=== PATIENT | male | born 1935 | race Caucasian/White ===

== ENCOUNTER 2016-10-18 14:15 | Emergency (ER) | payer MEDICARE, OTHER ==
[2016-10-18] MEDS ORDERED: HYDROcod/ACETAM 5/325 MG TABLET PO STA (17:12)
[2016-10-18] MEDS ORDERED: HYDROcod/ACETAM 5/325 MG TABLET ONE (17:27)
== END 2016-10-18 18:04 | disposition home or self-care (01) ==
DX: S39.012A Strain of muscle, fascia and tendon of lower back, initial encounter (principal); S20.212A Contusion of left front wall of thorax, initial encounter; W01.0XXA Fall on same level from slipping, tripping and stumbling without subsequent striking against object, initial encounter; Y92.019 Unspecified place in single-family (private) house as the place of occurrence of the external cause; I10 Essential (primary) hypertension; E78.00 Pure hypercholesterolemia, unspecified; I25.10 Atherosclerotic heart disease of native coronary artery without angina pectoris; G30.9 Alzheimer's disease, unspecified; F02.80 Dementia in other diseases classified elsewhere, unspecified severity, without behavioral disturbance, psychotic disturbance, mood disturbance, and anxiety; K21.9 Gastro-esophageal reflux disease without esophagitis; M19.90 Unspecified osteoarthritis, unspecified site
CPT/HCPCS: 71101; 72100; 99283; A9270

== ENCOUNTER 2017-05-11 19:23 | Emergency (ER) | payer MEDICARE, OTHER ==
[2017-05-11] MEDS ORDERED: SULFAMETH/TRIMETH DS 800/160 MG TABLET PO STA (20:09)
[2017-05-11] MEDS ORDERED: BUFFERED LIDOCAINE 10 ML SYRINGE SUBQ STA (20:09)
[2017-05-11] MEDS ORDERED: cephALEXin 250 MG CAPSULE PO STA (20:09)
--- NOTE | 2017-05-11 20:11 | ED Physician Documentation ---
PD HPI SKIN - Stated complaint Stated Complaint: LEG CYST - Chief complaint Chief Complaint: Wound - History obtained from History obtained from: Patient, Family - History of Present Illness Timing - onset: Other (82-year-old with Alzheimer's dementia is brought in by family, he has a cyst on his right leg that started as a pimple about 2 weeks ago and has become progressively larger. They drained it with a needle a few days ago and did get some drainage, but it closed back up. There is no associated fever or chills.) Review of Systems Ten Systems: 10 systems reviewed and negative Constitutional: denies: Fever, Chills, Myalgias, Fatigue Cardiac: reports: Reviewed and negative Respiratory: reports: Reviewed and negative PD PAST MEDICAL HISTORY - Past Medical History Cardiovascular: Hypertension, High cholesterol, Coronary artery disease Respiratory: None Neuro: Alzhiemer's GI: GERD : Other Psych: None Musculoskeletal: Osteoarthritis, Other Derm: None - Past Surgical History Past Surgical History: Yes General: Colonoscopy Ortho: Knee replacement Cardiovascular: Coronary stent HEENT: Tonsil/Adenoidectomy - Present Medications Home Medications: Ambulatory Orders Medication Instructions Recorded Confirmed Losartan [Cozaar] 20 mg PO DAILY 12/08/12 05/11/17 Simvastatin [Zocor] 40 mg PO DAILY 12/08/12 05/11/17 Cephalexin [Keflex] 500 mg PO QID #40 capsule 05/11/17 Sulfamethoxazole/Trimethoprim 1 each PO BID 10 Days tablet 05/11/17 [Sulfamethoxazole-Tmp Ds Tablet] - Allergies Allergies/Adverse Reactions: Allergies Allergy/AdvReac Type Severity Reaction Status Date / Time No Known Drug Allergies Allergy Verified 05/11/17 19:39 - Social History Does the pt smoke?: No Smoking Status: Never smoker Does the pt drink ETOH?: Yes Does the pt have substance abuse?: No - Immunizations Immunizations: TDAP >10years/unknown - POLST Patient has POLST: No PD ED PE NORMAL - Vitals Vital signs reviewed: Yes - General General: No acute distress, Well developed/nourished, Other (He uses the family for most of the history, he is pleasant and mildly demented.) - HEENT HEENT: PERRL, EOMI - Neck Neck: Supple, no meningeal sign, No bony TTP - Cardiac Cardiac: RRR, No murmur - Respiratory Respiratory: No respiratory distress, Clear bilaterally - Abdomen Abdomen: Soft, Non tender - Derm Derm: Normal color, Warm and dry - Extremities Extremities: Other (On the top of the right thigh medially there is a 3 x 2 cm pointed abscess without much surrounding cellulitis.) - Neuro Neuro: No motor deficit, No sensory deficit Eye Opening: Spontaneous Motor: Obeys Commands Verbal: Oriented GCS Score: 15 - Psych Psych: Normal mood, Normal affect Results - Vitals Vitals: Vital Signs - 24 hr 05/11/17 05/11/17 05/11/17 19:35 21:49 22:18 Temperature 36.2 C L 36.8 C Heart Rate 69 76 75 Respiratory 18 12 18 Rate Blood Pressure 126/83 H 138/75 H 134/81 H O2 Saturation 98 99 99 Oxygen O2 Source Room air - Labs Labs: Microbiology 05/11/17 20:43 Wound Culture - Preliminary Abscess Laboratory Tests 05/11/17 05/11/17 05/11/17 20:56 20:56 20:56 WBC 10.8 RBC 4.41 L Hgb 13.8 L Hct 40.3 L MCV 91.3 MCH 31.3 H MCHC 34.3 RDW 12.7 Plt Count 171 MPV 8.0 Neut # 8.0 H Lymph # 1.6 [facility] # 1.0 Eos # 0.1 Baso # 0.1 Absolute Nucleated RBC 0.01 Nucleated RBC % 0.1 Sodium 136 Potassium 3.9 Chloride 101 Carbon Dioxide 25 Anion Gap 10.0 BUN 31 H Creatinine 1.1 Estimated GFR (MDRD) 64 L Glucose 111 H Lactic Acid 0.6 Calcium 9.1 Total Bilirubin 1.2 H AST 27 ALT 29 Alkaline Phosphatase 47 Total Protein 7.2 Albumin 3.8 Globulin 3.4 Albumin/Globulin Ratio 1.1 Lipase 59 H - Rads (name of study) CT pelvis Radiology: EMP read contemporaneously (Right peroneal and medial thighs Skin thickening without drainable fluid collection) Procedures - Abscess I&D (location) R groin Preparation: Betadine, Lidocaine 1% Incision: Incised with scalpel, Purulent drainage, Loculations broken, Packed ( with 1/4 inch packing), Culture obtained Other: Pt tolerated well, Dressing applied PD MEDICAL DECISION MAKING - ED course ED course: He seem to have an uncomplicated groin abscess, that said when he want to incise and drain it and the loculated at the hemostats easily went up to the suggesting a very extensive abscess cavity and there became a concern for either a necrotizing infection although this is not clinically significant as he has minimal pain and does not appear toxic, versus a fistulous connection to the GI tract. At that point he had already received oral antibiotics but I made a decision to place an IV and obtain advanced imaging prior to surgical consultation. After the CT I did discuss the case by phone with Dr. Dumont, the on-call surgeon who felt that he did not need admission and she was not too worried about the extent that the hemostats penetrated. His CT was negative and he remained nontoxic appearing with basically unremarkable labs. Family was comfortable with discharge and they were counseled at length about follow-up wound care. Departure - Departure Disposition: 01 Home, Self Care Clinical Impression: Abscess Condition: Good Record reviewed to determine appropriate education?: Yes Instructions: ED Abscess IandD Follow-Up: SUZY DUMONT MD [Provider Admit Priv/Credential] - Within 1 week Prescriptions: Cephalexin [Keflex] 500 mg PO QID #40 capsule Sulfamethoxazole/Trimethoprim [Sulfamethoxazole-Tmp Ds Tablet] 1 each PO BID 10 Days tablet Comments: Follow-up with your doctor or the career services officer in 2 days for wound check and packing removal. Return if worse. Follow-up with the surgeon in 1 week as discussed.
[2017-05-11] MEDS ORDERED: cephALEXin 250 MG CAPSULE PO ONE (20:20)
[2017-05-11] MEDS ORDERED: SULFAMETH/TRIMETH DS 800/160 MG TABLET PO ONE (20:21)
[2017-05-11] MEDS ORDERED: BUFFERED LIDOCAINE 10 ML SYRINGE ONE (20:22)
[2017-05-11 21:05] LABS: BASOPHILS # (AUTO) 0.1 10^3/uL (0.0-0.1); BASOPHILS % (AUTO) 0.6 %; EOSINOPHILS # (AUTO) 0.1 10^3/uL (0.0-0.7); EOSINOPHILS % (AUTO) 0.9 %; HCT - HEMATOCRIT 40.3 % (42.0-52.0); HGB - HEMOGLOBIN 13.8 g/dL (14.0-18.0); LYMPHOCYTES # (AUTO) 1.6 10^3/uL (1.5-3.5); LYMPHOCYTES % (AUTO) 14.7 %; MEAN CORPUSCULAR HEMOGLOBIN 31.3 pg (27.0-31.0); MEAN CORPUSCULAR HGB CONC 34.3 g/dL (32.0-36.0); MEAN CORPUSCULAR VOLUME 91.3 fL (80.0-94.0); MONOCYTES % (AUTO) 9.3 %; NEUTROPHILS % (AUTO) 74.5 %; NUCLEATED RED BLOOD CELLS AUTO 0.1 /100WBC; RED BLOOD COUNT 4.41 10^6/uL (4.70-6.10); RED CELL DISTRIBUTION WIDTH 12.7 % (12.0-15.0); UNCORRECTED WHITE BLOOD COUNT 10.8 x10^3/uL; WHITE BLOOD COUNT 10.8 x10^3/uL (4.8-10.8)
[2017-05-11 21:19] LABS: ALBUMIN/GLOBULIN RATIO 1.1 (1.0-2.2); BILIRUBIN,TOTAL 1.2 mg/dL (0.2-1.0); CALCIUM 9.1 mg/dL (8.5-10.3); CREATININE 1.1 mg/dL (0.6-1.2); POTASSIUM 3.9 mmol/L (3.5-5.0); TOTAL PROTEIN 7.2 g/dL (6.7-8.2)
[2017-05-11] MEDS ORDERED: IOPAMIDOL-300 100 ML VIAL ONE (21:35)
[2017-05-11] MEDS ORDERED: IOPAMIDOL-300 100 ML VIAL IVP ONE (21:44)
--- NOTE | 2017-05-11 22:11 | CT Preliminary Report ---
Exam: CT PELVIS W/ IMPRESSION: 1. There is right perineal and medial thigh skin thickening and subcutaneous fat stranding. No eviden ce of drainable collection. 2. There is sigmoid colon diverticulosis. [facility] SITE ID: [id number]
--- NOTE | 2017-05-11 22:14 | CT Report ---
EXAM: CT PELVIS EXAM DATE: 05/11/2017 09:48 PM. CLINICAL HISTORY: Right groin abscess. COMPARISONS: None. TECHNIQUE: Routine helical CT imaging was performed through the pelvis. IV contrast: Isovue 300 100mL . Enteric contrast: No. Reconstructions: Coronal and sagittal. In accordance with CT protocol optimization, one or more of the following dose reduction techniques w ere utilized for this exam: automated exposure control, adjustment of mA and/or KV based on patient s ize, or use of iterative reconstructive technique. FINDINGS: Visualized Abdominal Organs: Normal. Peritoneal Cavity/Bowel: No dilated or thick-walled bowel is seen. There is sigmoid colon diverticulo sis without evidence of diverticulitis. No enlarged pelvic lymph nodes. No evidence of appendicitis. Pelvic Organs: The urinary bladder is unremarkable. There is a fat-containing left inguinal hernia. T here are low pelvic surgical clips. Vasculature: No aneurysms or other significant abnormality. Bones: No significant abnormality. Other: There is right perineal and medial thigh skin thickening and subcutaneous fat stranding. No ev idence of drainable collection. IMPRESSION: 1. There is right perineal and medial thigh skin thickening and subcutaneous fat stranding. No eviden ce of drainable collection. 2. There is sigmoid colon diverticulosis. [facility] Referring Provider Line: [phone] SITE ID: [id number]
[2017-05-11 22:55] VITALS: BP 129/83
== END 2017-05-11 23:03 | disposition home or self-care (01) ==
LOC: ED 19:23
DX: L02.415 Cutaneous abscess of right lower limb (principal); I10 Essential (primary) hypertension; I25.10 Atherosclerotic heart disease of native coronary artery without angina pectoris; E78.00 Pure hypercholesterolemia, unspecified; G30.9 Alzheimer's disease, unspecified; F02.80 Dementia in other diseases classified elsewhere, unspecified severity, without behavioral disturbance, psychotic disturbance, mood disturbance, and anxiety; Z95.5 Presence of coronary angioplasty implant and graft; Z96.659 Presence of unspecified artificial knee joint
CPT/HCPCS: 10060; 36415; 72193; 80053; 83605; 83690; 85025; 87040; 87070; 87205; 99283; 99284; A9270; Q9967

== ENCOUNTER 2017-05-13 12:44 | Outpatient (CLI) | payer MEDICARE, OTHER | END 2017-05-13 12:45 | disposition critical access hospital (66) | LOC: EMS 12:44 | PROVIDERS: ATTEND Surgery | DX: R10.9 Unspecified abdominal pain (principal); R19.7 Diarrhea, unspecified | CPT/HCPCS: A0425; A0427 ==

== ENCOUNTER 2017-05-13 12:59 | Inpatient (IN) | payer MEDICARE, OTHER ==
[2017-05-13 14:35] LABS: BASOPHILS # (AUTO) 0.1 10^3/uL (0.0-0.1); BASOPHILS % (AUTO) 0.8 %; EOSINOPHILS # (AUTO) 0.1 10^3/uL (0.0-0.7); EOSINOPHILS % (AUTO) 0.4 %; HCT - HEMATOCRIT 39.9 % (42.0-52.0); HGB - HEMOGLOBIN 13.8 g/dL (14.0-18.0); LYMPHOCYTES # (AUTO) 0.9 10^3/uL (1.5-3.5); LYMPHOCYTES % (AUTO) 6.8 %; MEAN CORPUSCULAR HEMOGLOBIN 31.6 pg (27.0-31.0); MEAN CORPUSCULAR HGB CONC 34.6 g/dL (32.0-36.0); MEAN CORPUSCULAR VOLUME 91.2 fL (80.0-94.0); MEAN PLATELET VOLUME 8.5 fL (7.4-11.4); MONOCYTES # (AUTO) 0.8 10^3/uL (0.0-1.0); MONOCYTES % (AUTO) 6.4 %; NEUTROPHILS # (AUTO) 11.3 10^3/uL (1.5-6.6); NEUTROPHILS % (AUTO) 85.6 %; NUCLEATED RED BLOOD CELLS AUTO 0.1 /100WBC; RED BLOOD COUNT 4.37 10^6/uL (4.70-6.10); RED CELL DISTRIBUTION WIDTH 12.8 % (12.0-15.0); UNCORRECTED WHITE BLOOD COUNT 13.2 x10^3/uL; WHITE BLOOD COUNT 13.2 x10^3/uL (4.8-10.8)
[2017-05-13 14:51] LABS: ALBUMIN/GLOBULIN RATIO 1.1 (1.0-2.2); BILIRUBIN,TOTAL 0.9 mg/dL (0.2-1.0); CALCIUM 8.9 mg/dL (8.5-10.3); CREATININE 1.5 mg/dL (0.6-1.2); POTASSIUM 3.6 mmol/L (3.5-5.0); TOTAL PROTEIN 7.2 g/dL (6.7-8.2)
--- NOTE | 2017-05-13 15:32 | ED Physician Documentation ---
History of Present Illness - Stated complaint Stated Complaint: ABD PAIN, NAUSEA - Chief complaint Chief Complaint: Abd Pain - Additonal information Additional information: hx from pt 82 male recently seen for deep abscess to R inner thigh - had CT imaging blood work and phone consultation with surgeon during that ER visit dc on antibiotics keflex and bactrim followed up with derm and repacked and added bactroban back to ER today with severe diarrhea and shaking chills and weakness Review of Systems Constitutional: reports: Chills. denies: Fever Cardiac: denies: Chest pain / pressure GI: reports: Abdominal Pain, Nausea, Vomiting, Diarrhea : reports: Incontinent. denies: Dysuria Skin: reports: Lesions Endocrine: denies: Easy bruising / bleeding Immunocompromised: denies: Immunocompromised PD PAST MEDICAL HISTORY - Past Medical History Cardiovascular: Hypertension, High cholesterol, Coronary artery disease Respiratory: None Neuro: Alzhiemer's GI: GERD : Other Psych: None Musculoskeletal: Osteoarthritis, Other Derm: None - Past Surgical History Past Surgical History: Yes General: Colonoscopy Ortho: Knee replacement Cardiovascular: Coronary stent HEENT: Tonsil/Adenoidectomy - Present Medications Home Medications: Ambulatory Orders Medication Instructions Recorded Confirmed Losartan [Cozaar] 20 mg PO DAILY 12/08/12 05/11/17 Simvastatin [Zocor] 40 mg PO DAILY 12/08/12 05/11/17 Cephalexin [Keflex] 500 mg PO QID #40 capsule 05/11/17 Sulfamethoxazole/Trimethoprim 1 each PO BID 10 Days tablet 05/11/17 [Sulfamethoxazole-Tmp Ds Tablet] - Allergies Allergies/Adverse Reactions: Allergies Allergy/AdvReac Type Severity Reaction Status Date / Time No Known Drug Allergies Allergy Verified 05/13/17 13:22 - Social History Does the pt smoke?: No Smoking Status: Never smoker Does the pt drink ETOH?: Yes Does the pt have substance abuse?: No - Immunizations Immunizations: TDAP >10years/unknown - POLST Patient has POLST: No PD ED PE NORMAL - Vitals Vital signs reviewed: Yes - General General: Other (alert confused) - Neck Neck: Supple, no meningeal sign - Respiratory Respiratory: No respiratory distress, Clear bilaterally - Abdomen Abdomen: Soft, Non tender - Derm Derm: Other (high inner posterior R thigh abscess cavity with no dc and surrounding mild eythema and some bruising (looks better than before per family) ) Results - Vitals Vitals: Vital Signs - 24 hr 05/13/17 05/13/17 05/13/17 13:00 14:43 16:13 Temperature 36.2 C L Heart Rate 73 77 87 Respiratory 16 20 Rate Blood Pressure 133/72 H 133/81 H 78/56 L O2 Saturation 92 98 05/13/17 16:27 Temperature Heart Rate 86 Respiratory 24 Rate Blood Pressure 94/76 O2 Saturation 100 Oxygen O2 Source Room air - Labs Labs: Microbiology 05/13/17 14:14 Clostridium difficile (PCR) - Final Stool 05/13/17 14:14 Campylobacter Antigen Assay - Final Stool Laboratory Tests 05/13/17 05/13/17 05/13/17 14:28 14:28 15:42 WBC 13.2 H RBC 4.37 L Hgb 13.8 L Hct 39.9 L MCV 91.2 MCH 31.6 H MCHC 34.6 RDW 12.8 Plt Count 160 MPV 8.5 Neut # 11.3 H Lymph # 0.9 L [place] # 0.8 Eos # 0.1 Baso # 0.1 Absolute Nucleated RBC 0.01 Nucleated RBC % 0.1 Sodium 135 Potassium 3.6 Chloride 99 L Carbon Dioxide 22 Anion Gap 14.0 H BUN 33 H Creatinine 1.5 H Estimated GFR (MDRD) 45 L Glucose 167 H Lactic Acid 2.4 H Calcium 8.9 Total Bilirubin 0.9 AST 39 ALT 35 Alkaline Phosphatase 62 Total Protein 7.2 Albumin 3.8 Globulin 3.4 Albumin/Globulin Ratio 1.1 Lipase 27 PD MEDICAL DECISION MAKING - ED course ED course: repacked wound sent stool for c diff pt developed rea rigors so added lactate blood cx urine and CXR then progressed to hypotension lactate elevated not sure if septic or volume depleted from unstoppable diarrhea either way needs admit per EMR blood cx from last visit neg to date and abscess grew skin anna will discuss IV ab with admitting doc - we agreed on angel dewitt Departure - Departure Disposition: 66 [facility] DC/Xfer Clinical Impression: SIRS (systemic inflammatory response syndrome), Abscess Hypotension Qualifiers: Hypotension type: unspecified hypotension type Qualified Code(s): I95.9 - Hypotension, unspecified Diarrhea Qualifiers: Diarrhea type: unspecified type Qualified Code(s): R19.7 - Diarrhea, unspecified Discharge Date/Time: 05/13/17 18:08
--- NOTE | 2017-05-13 16:08 | XRAY Preliminary Report ---
Exam: XR CHEST 1 VIEW IMPRESSION: Normal single view chest. [facility] SITE ID: [id number]
--- NOTE | 2017-05-13 16:14 | XRAY Report ---
EXAM: CHEST RADIOGRAPHY EXAM DATE: 05/13/2017 03:56 PM. CLINICAL HISTORY: Dementia. COMPARISON: 10/18/2016. TECHNIQUE: 1 view. FINDINGS: Lungs/Pleura: No focal opacities evident. No pleural effusion. No pneumothorax. Mediastinum: Within exam limitations, the cardiomediastinal contour is normal. Other: None. IMPRESSION: Normal single view chest. [facility] Referring Provider Line: [phone] SITE ID: [id number]
[2017-05-13] MEDS ORDERED: SODIUM CHLORIDE 0.9% 1,000 ML IV ONE (16:28)
[2017-05-13] MEDS ORDERED: PIPERACILLIN/TAZOBACTAM 3.375 GM in SODIUM CHLORIDE 0.9% MINIBAG 100 ML IV STA (16:58)
[2017-05-13] MEDS ORDERED: ONDANSETRON ODT 4 MG TABLET TL PRN (16:58)
[2017-05-13] MEDS ORDERED: VANCOMYCIN INJ 1 GM in SODIUM CHLORIDE 0.9% 250 ML IV STA (16:58)
[2017-05-13] MEDS ORDERED: HYDROmorphone 0.5 MG/0.5 ML SYRINGE IVP PRN (16:58)
[2017-05-13] MEDS ORDERED: HYDROcod/ACETAM 5/325 MG TABLET PO PRN (16:58)
[2017-05-13] MEDS ORDERED: LIDOCAINE 2% URO-JET 5 ML SYRINGE UR STA (16:59)
[2017-05-13] MEDS ORDERED: LIDOCAINE 2% URO-JET 5 ML SYRINGE UR ONE (17:00)
[2017-05-13 17:39] LABS: BILIRUBIN,URINE NEGATIVE (NEGATIVE)
[2017-05-13 17:40] LABS: UA CHARGE (STRIP ONLY) YES; UR CULTURE IF IND NOT INDICATED
[2017-05-13] MEDS: SODIUM CHLORIDE 0.9% 1,000 ML IV SCH (19:05)
[2017-05-13] MEDS: VANCOMYCIN 1.5 GM/NS 500 ML 1.5 GM/500 ML BAG IV SCH (19:21)
[2017-05-13] MEDS: CHOLESTYRAMINE 4 GM PACKET PO SCH (19:30)
[2017-05-13] MEDS: ONDANSETRON 4 MG/2 ML VIAL IVP PRN (19:39)
[2017-05-13] MEDS: SODIUM CHLORIDE FLUSH 0.9% 10 ML SYRINGE IVP SCH (21:04)
[2017-05-13] MEDS: PIPERACILLIN/TAZOBACTAM 3.375 GM in SODIUM CHLORIDE 0.9% MINIBAG 100 ML IV SCH (21:25)
[2017-05-13] MEDS: DIPHENOX/ATROPINE 2.5/0.025 MG TABLET PO PRN (22:20)
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
[2017-05-14] MEDS ORDERED: MIN OIL/DIMETHICON/COCONUT OIL 92 GM TUBE TOP ONE (04:14)
[2017-05-14] MEDS: PIPERACILLIN/TAZOBACTAM 3.375 GM in SODIUM CHLORIDE 0.9% MINIBAG 100 ML IV SCH ×3 (05:02→20:33)
[2017-05-14] MEDS: DIPHENOX/ATROPINE 2.5/0.025 MG TABLET PO PRN ×4 (05:03→20:34)
[2017-05-14] MEDS: SODIUM CHLORIDE FLUSH 0.9% 10 ML SYRINGE IVP SCH ×3 (05:04→20:34)
[2017-05-14] MEDS: SODIUM CHLORIDE 0.9% 1,000 ML IV SCH (05:04)
[2017-05-14 05:25] LABS: CALCIUM 8.4 mg/dL (8.5-10.3); CREATININE 1.1 mg/dL (0.6-1.2); POTASSIUM 3.7 mmol/L (3.5-5.0)
[2017-05-14 05:30] LABS: BASOPHILS % (AUTO) 0.3 %; EOSINOPHILS % (AUTO) 0.1 %; HCT - HEMATOCRIT 39.5 % (42.0-52.0); HGB - HEMOGLOBIN 13.5 g/dL (14.0-18.0); LYMPHOCYTES # (AUTO) 1.2 10^3/uL (1.5-3.5); LYMPHOCYTES % (AUTO) 8.3 %; MEAN CORPUSCULAR HEMOGLOBIN 31.1 pg (27.0-31.0); MEAN CORPUSCULAR HGB CONC 34.2 g/dL (32.0-36.0); MEAN CORPUSCULAR VOLUME 91.1 fL (80.0-94.0); MEAN PLATELET VOLUME 8.6 fL (7.4-11.4); MONOCYTES # (AUTO) 1.1 10^3/uL (0.0-1.0); MONOCYTES % (AUTO) 7.6 %; NEUTROPHILS # (AUTO) 12.1 10^3/uL (1.5-6.6); NEUTROPHILS % (AUTO) 83.7 %; RED BLOOD COUNT 4.34 10^6/uL (4.70-6.10); RED CELL DISTRIBUTION WIDTH 12.9 % (12.0-15.0); UNCORRECTED WHITE BLOOD COUNT 14.5 x10^3/uL; WHITE BLOOD COUNT 14.5 x10^3/uL (4.8-10.8)
--- NOTE | 2017-05-14 07:46 | PROVIDER PROGRESS NOTE ---
Subjective - Prog Note Date Prog Note Date: 05/14/17 Prog Note Time: 07:41 - Subjective Pt reports feeling: Improved Subjective: Overnight his blood pressures remained stable. He is still in ICU. Did not need to use pressor agents. He is having diarrhea that is thick, pudding-like, and maroon red. There is no abdominal pain. He already had Campylobacter and C. difficile in the emergency room and those were negative. Current Medications - Current Medications Current Medications: Active Medications Acetaminophen (Tylenol) 650 mg PO Q4HR PRN PRN Reason: Pain 1 to 4 Acetaminophen/Hydrocodone Bitart (Mccoy 5/325) 1 tab PO Q4HR PRN PRN Reason: Pain 5 to 7 Cholestyramine/Sucrose (Questran) 4 gm PO DAILY [facility] Last Admin: 05/13/17 19:30 Dose: 4 gm Diphenoxylate HCl/Atropine (Lomotil) 1 tab PO QID PRN PRN Reason: Diarrhea Last Admin: 05/14/17 05:03 Dose: 1 tab Enoxaparin Sodium (Lovenox) 40 mg SUBQ DAILY [facility] Hydromorphone HCl (Dilaudid Inj Syringe) 0.5 mg IVP Q2H PRN PRN Reason: Pain 8 to 10 Sodium Chloride (Normal Saline 0.9%) 1,000 mls @ 100 mls/hr IV .Q10H [facility] Last Admin: 05/14/17 05:04 Dose: 100 mls/hr Vancomycin/Sodium Chloride (Vanco/Sod Chloride 0.9%) 1.5 gm in 500 mls @ 250 mls/hr IV Q24H [facility] Last Infusion: 05/13/17 21:25 Dose: Infused Piperacillin Sod/Tazobactam (Sod 3.375 gm/ Sodium Chloride) 100 mls @ 25 mls/ hr IV Q8H [facility] Last Admin: 05/14/17 05:02 Dose: 100 mls/hr Ondansetron HCl (Zofran Inj) 4 mg IVP Q6HR PRN PRN Reason: Nausea / Vomiting Last Admin: 05/13/17 19:39 Dose: 4 mg Ondansetron HCl (Zofran Odt) 4 mg TL Q6HR PRN PRN Reason: Nausea / Vomiting Sodium Chloride (Normal Saline Flush 0.9%) 10 ml IVP Q8HR [facility] Last Admin: 05/14/17 05:04 Dose: Not Given Sodium Chloride (Normal Saline Flush 0.9%) 10 ml IVP PRN PRN PRN Reason: NEEDED PER PROVIDER ORDERS Losartan [Cozaar] 20 mg PO DAILY 12/08/12 Simvastatin [Zocor] 40 mg PO DAILY 12/08/12 Objective - Vital Signs/Intake & Output Reviewed Vital Signs: Yes Vital Signs: Vital Signs x48h Temp Pulse Resp BP Pulse Ox 05/14/17 06:00 78 12 149/78 H 97 05/14/17 05:00 36.0 C L 88 16 158/88 H 97 05/14/17 04:00 92 12 156/89 H 96 05/14/17 03:00 93 15 156/92 H 94 05/14/17 02:00 93 10 L 160/83 H 96 05/14/17 01:00 95 15 157/84 H 97 05/14/17 00:00 36.4 C L 92 16 156/91 H 95 Intake & Output: Intake & Output 05/11/17 05/12/17 05/13/17 05/14/17 23:59 23:59 23:59 23:59 Intake Total 9436.260 1256.333 Output Total 1115 260 Balance 665.000 898.333 - Lab Results Fish Bones: 05/14/17 05:08 05/14/17 05:08 Other Labs: Lab Results x24hrs 05/14/17 05/14/17 05/14/17 Range/Units 05:08 05:08 05:08 WBC 14.5 H (4.8-10.8) x10^3/uL RBC 4.34 L (4.70-6.10) 10^6/uL Hgb 13.5 L (14.0-18.0) g/dL Hct 39.5 L (42.0-52.0) % MCV 91.1 (80.0-94.0) fL MCH 31.1 H (27.0-31.0) pg MCHC 34.2 (32.0-36.0) g/dL RDW 12.9 (12.0-15.0) % Plt Count 170 (130-450) 10^3/uL MPV 8.6 (7.4-11.4) fL Neut # 12.1 H (1.5-6.6) 10^3/uL Lymph # 1.2 L (1.5-3.5) 10^3/uL [place] # 1.1 H (0.0-1.0) 10^3/uL Eos # 0.0 (0.0-0.7) 10^3/uL Baso # 0.0 (0.0-0.1) 10^3/uL Absolute Nucleated RBC 0.01 x10^3/uL Nucleated RBC % 0.0 /100WBC Sodium 137 (135-145) mmol/L Potassium 3.7 (3.5-5.0) mmol/L Chloride 105 (101-111) mmol/L Carbon Dioxide 20 L (21-32) mmol/L Anion Gap 12.0 (6-13) BUN 19 (6-20) mg/dL Creatinine 1.1 (0.6-1.2) mg/dL Estimated GFR (MDRD) 64 L (>89) Glucose 145 H (70-100) mg/dL Lactic Acid 0.8 (0.5-2.2) mmol/L Calcium 8.4 L (8.5-10.3) mg/dL Urine Color Urine Clarity (CLEAR) Urine pH (5.0-7.5) PH Ur Specific Eldridge (1.002-1.030) Urine Protein (NEGATIVE) mg/dL Urine Glucose (UA) (NEGATIVE) mg/dL Urine Ketones (NEGATIVE) mg/dL Urine Occult Blood (NEGATIVE) Urine Nitrite (NEGATIVE) Urine Bilirubin (NEGATIVE) Urine Urobilinogen (NORMAL) E.U./dL Ur Leukocyte Esterase (NEGATIVE) Ur Microscopic Review Urine Culture Comments 05/13/17 Range/Units 17:17 WBC (4.8-10.8) x10^3/uL RBC (4.70-6.10) 10^6/uL Hgb (14.0-18.0) g/dL Hct (42.0-52.0) % MCV (80.0-94.0) fL MCH (27.0-31.0) pg MCHC (32.0-36.0) g/dL RDW (12.0-15.0) % Plt Count (130-450) 10^3/uL MPV (7.4-11.4) fL Neut # (1.5-6.6) 10^3/uL Lymph # (1.5-3.5) 10^3/uL [place] # (0.0-1.0) 10^3/uL Eos # (0.0-0.7) 10^3/uL Baso # (0.0-0.1) 10^3/uL Absolute Nucleated RBC x10^3/uL Nucleated RBC % /100WBC Sodium (135-145) mmol/L Potassium (3.5-5.0) mmol/L Chloride (101-111) mmol/L Carbon Dioxide (21-32) mmol/L Anion Gap (6-13) BUN (6-20) mg/dL Creatinine (0.6-1.2) mg/dL Estimated GFR (MDRD) (>89) Glucose (70-100) mg/dL Lactic Acid (0.5-2.2) mmol/L Calcium (8.5-10.3) mg/dL Urine Color YELLOW Urine Clarity CLEAR (CLEAR) Urine pH 6.0 (5.0-7.5) PH Ur Specific [place] 1.020 (1.002-1.030) Urine Protein NEGATIVE (NEGATIVE) mg/dL Urine Glucose (UA) NEGATIVE (NEGATIVE) mg/dL Urine Ketones TRACE (NEGATIVE) mg/dL Urine Occult Blood NEGATIVE (NEGATIVE) Urine Nitrite NEGATIVE (NEGATIVE) Urine Bilirubin NEGATIVE (NEGATIVE) Urine Urobilinogen 0.2 (NORMAL) (NORMAL) E.U./dL Ur Leukocyte Esterase NEGATIVE (NEGATIVE) Ur Microscopic Review NOT INDICATED Urine Culture Comments NOT INDICATED Assessment/Plan - Problem List (1) Sepsis Impression: came in with diarhhea, slumping to the floor, AMS. In ER hypotensive, tachycardic, elevated WBC and elevated lactic acid. Abcess is only source seen for cause of infection so far. Repeat lactic acid is now normal. Hypotension resolved and now normotensive. WBC is still high. So sepsis has resolved. Plan: Transfer to Med Surg Status. Qualifiers: Sepsis type: sepsis due to unspecified organism Qualified Code(s): A41.9 - Sepsis, unspecified organism (2) Abscess Impression: right medial thigh, next to scrotum. He has had filemon intertrigo since this summer and is followed by Dermatology with antifungal cream use. This may have the the cause of his skin breakdown. presented as a small "pea" that came to a head a week ago, sun at home, then grew larger and more purulent and seen in ER 05/11. I&D with cultures showing only nml skin anna and blood cultures neg. Treated with Keflex and Bactrim, Seen by Derm 05/12 to repack wound, and came in with diarhhea, slumping to the floor, AMS. In ER hypotensive, tachycardic, elevated WBC and elevated lactic acid. Abcess is only source seen for cause of infection so far. Plan: Zosyn and Vancomycin Day #2 daily dressing changes. (3) Diarrhea Impression: sudden in onset day of admission after 3 oral doses of abx. C Dif neg. Campy neg. Culture is pending. Cause of dehyration and hypotension as well. Plan: check stool for FOBT await cultures. If continues, consider CT abd and pelvis to look for bowel pathology and to look at groin abcess progress Qualifiers: Diarrhea type: unspecified type Qualified Code(s): R19.7 - Diarrhea, unspecified (4) ERIBERTO (acute kidney injury) Impression: Resolved. From dehydration and diarrhea. Has responded to IV hydration. UA is negative for UTI. Has a hx of prostate cancer with prostatectomy and residual frequency, urgency and incontinence. Plan: IV lock after 2 full liters of NS Will continue daily BUN, Creat check since he is on Vancomycin. (5) Hyperglycemia Impression: no history of DM Plan: Check A1c (6) Weakness generalized Impression: Due to severe infection. He needs help sitting up in bed, and going to the bathroom. He is very cooperative with aids. But the is alarmed. She cannot take him home this way. As such I will ask for physical therapy to evaluate and treat and see if he is a candidate for physical therapy in a halfway facility.
[2017-05-14] MEDS: CHOLESTYRAMINE 4 GM PACKET PO SCH (08:40)
[2017-05-14] MEDS: ENOXAPARIN 40 MG/0.4 ML SYRINGE SUBQ SCH (08:41)
[2017-05-14] MEDS: ACETAMINOPHEN 325 MG TABLET PO PRN (13:25)
[2017-05-14] MEDS: VANCOMYCIN 1.5 GM/NS 500 ML 1.5 GM/500 ML BAG IV SCH (18:15)
[2017-05-14] MEDS: SODIUM CHLORIDE FLUSH 0.9% 10 ML SYRINGE IVP PRN (18:15)
[2017-05-15] MEDS: DIPHENOX/ATROPINE 2.5/0.025 MG TABLET PO PRN (04:46)
[2017-05-15] MEDS: PIPERACILLIN/TAZOBACTAM 3.375 GM in SODIUM CHLORIDE 0.9% MINIBAG 100 ML IV SCH (04:46)
[2017-05-15] MEDS: ACETAMINOPHEN 325 MG TABLET PO PRN (04:46)
[2017-05-15] MEDS: SODIUM CHLORIDE FLUSH 0.9% 10 ML SYRINGE IVP SCH ×3 (04:47→21:55)
[2017-05-15 05:10] LABS: BASOPHILS # (AUTO) 0.1 10^3/uL (0.0-0.1); BASOPHILS % (AUTO) 0.5 %; EOSINOPHILS # (AUTO) 0.2 10^3/uL (0.0-0.7); EOSINOPHILS % (AUTO) 1.2 %; HCT - HEMATOCRIT 36.7 % (42.0-52.0); HGB - HEMOGLOBIN 12.5 g/dL (14.0-18.0); LYMPHOCYTES # (AUTO) 1.8 10^3/uL (1.5-3.5); LYMPHOCYTES % (AUTO) 13.5 %; MEAN CORPUSCULAR HEMOGLOBIN 31.2 pg (27.0-31.0); MEAN CORPUSCULAR HGB CONC 34.1 g/dL (32.0-36.0); MEAN CORPUSCULAR VOLUME 91.7 fL (80.0-94.0); MEAN PLATELET VOLUME 8.5 fL (7.4-11.4); MONOCYTES % (AUTO) 7.6 %; NEUTROPHILS # (AUTO) 10.5 10^3/uL (1.5-6.6); NEUTROPHILS % (AUTO) 77.2 %; RED BLOOD COUNT 4.01 10^6/uL (4.70-6.10); RED CELL DISTRIBUTION WIDTH 12.9 % (12.0-15.0); UNCORRECTED WHITE BLOOD COUNT 13.6 x10^3/uL; WHITE BLOOD COUNT 13.6 x10^3/uL (4.8-10.8)
[2017-05-15 05:15] LABS: CREATININE 0.9 mg/dL (0.6-1.2); POTASSIUM 3.6 mmol/L (3.5-5.0)
[2017-05-15 06:19] LABS: HEMOGLOBIN A1C 0.47 g/dL
--- NOTE | 2017-05-15 08:19 | PROVIDER PROGRESS NOTE ---
Subjective - Prog Note Date Prog Note Date: 05/15/17 Prog Note Time: 09:28 - Subjective Subjective: He remains a very pleasant, very cooperative but very forgetful elderly gentleman. As always, he is a [place] speaker. Always very complementary of the nurses and myself. But cannot remember he met me 5 minutes ago. Still having diarrhea but much less frequency than yesterday. I know that he lacks the foresight inability to describe discomfort. But he denies chest pain, abdominal pain. He is eating well. Eats 5200% of his meals Current Medications - Current Medications Current Medications: Active Medications Acetaminophen (Tylenol) 650 mg PO Q4HR PRN PRN Reason: Pain 1 to 4 Last Admin: 05/15/17 04:46 Dose: 650 mg Acetaminophen/Hydrocodone Bitart ([place] 5/325) 1 tab PO Q4HR PRN PRN Reason: Pain 5 to 7 Cholestyramine/Sucrose (Questran) 4 gm PO DAILY [facility] Last Admin: 05/15/17 08:36 Dose: 4 gm Diphenoxylate HCl/Atropine (Lomotil) 1 tab PO QID PRN PRN Reason: Diarrhea Last Admin: 05/15/17 04:46 Dose: 1 tab Enoxaparin Sodium (Lovenox) 40 mg SUBQ DAILY [facility] Last Admin: 05/15/17 08:37 Dose: 40 mg Hydromorphone HCl (Dilaudid Inj Syringe) 0.5 mg IVP Q2H PRN PRN Reason: Pain 8 to 10 Vancomycin/Sodium Chloride (Vanco/Sod Chloride 0.9%) 1.5 gm in 500 mls @ 250 mls/hr IV Q24H [facility] Last Infusion: 05/14/17 20:38 Dose: Infused Piperacillin Sod/Tazobactam (Sod 3.375 gm/ Sodium Chloride) 100 mls @ 25 mls/ hr IV Q8H [facility] Last Admin: 05/15/17 04:46 Dose: 25 mls/hr Ondansetron HCl (Zofran Inj) 4 mg IVP Q6HR PRN PRN Reason: Nausea / Vomiting Last Admin: 05/13/17 19:39 Dose: 4 mg Ondansetron HCl (Zofran Odt) 4 mg TL Q6HR PRN PRN Reason: Nausea / Vomiting Sodium Chloride (Normal Saline Flush 0.9%) 10 ml IVP Q8HR [facility] Last Admin: 05/15/17 04:47 Dose: 10 ml Sodium Chloride (Normal Saline Flush 0.9%) 10 ml IVP PRN PRN PRN Reason: NEEDED PER PROVIDER ORDERS Last Admin: 05/14/17 18:15 Dose: 10 ml Losartan/Hydrochlorothiazide [Losartan-Hctz 50-12.5 mg Tab] 1 tab PO DAILY 05/14 Simvastatin [Simvastatin] 40 mg PO QPM 05/14/17 Objective - Vital Signs/Intake & Output Reviewed Vital Signs: Yes Vital Signs: Vital Signs x48h Temp Pulse Resp BP Pulse Ox 05/15/17 04:48 37.2 C 77 18 136/68 H 95 05/15/17 01:00 37.2 C 77 16 139/87 H 95 Intake & Output: Intake & Output 05/12/17 05/13/17 05/14/17 05/15/17 23:59 23:59 23:59 23:59 Intake Total 5693.548 4831.333 350 Output Total 1115 1210 700 Balance 275.435 9818.333 -350 - Objective General Appearance: positive: No acute distress, Alert, Other (Still tremulous when he has to exert himself such as trying to sit up. At rest comfortable) Eyes Bilateral: positive: PERRL, EOMI ENT: positive: Other (The very dry tongue has resolved and that now oral mucosa is pink and moist) Neck: positive: No JVD. negative: Lymphadenopathy (R), Lymphadenopathy (L), Stiff neck, Carotid bruit Respiratory: positive: Chest non-tender. negative: Wheezes, Rales, Rhonchi Cardiovascular: positive: Irregularly irregular, Systolic murmur. negative: Gallop/S4, Friction rub Abdomen: positive: Non-tender, No organomegaly, Nml bowel sounds, No distention Skin: positive: Warm, Dry Extremities: positive: Full ROM, No pedal edema Neurologic/Psychiatric: positive: CN's nml (2-12), Disoriented to place, Disoriented to time. negative: Motor nml (shakey, ataxic) - Lab Results Fish Bones: 05/15/17 04:46 05/15/17 04:46 Other Labs: Lab Results x24hrs 12/08/2705/15/17 05/15/17 Range/Units 04:46 04:46 04:46 WBC 13.6 H (4.8-10.8) x10^3/uL RBC 4.01 L (4.70-6.10) 10^6/uL Hgb 12.5 L (14.0-18.0) g/dL Hct 36.7 L (42.0-52.0) % MCV 91.7 (80.0-94.0) fL MCH 31.2 H (27.0-31.0) pg MCHC 34.1 (32.0-36.0) g/dL RDW 12.9 (12.0-15.0) % Plt Count 154 (130-450) 10^3/uL MPV 8.5 (7.4-11.4) fL Neut # 10.5 H (1.5-6.6) 10^3/uL Lymph # 1.8 (1.5-3.5) 10^3/uL [place] # 1.0 (0.0-1.0) 10^3/uL Eos # 0.2 (0.0-0.7) 10^3/uL Baso # 0.1 (0.0-0.1) 10^3/uL Absolute Nucleated RBC 0.00 x10^3/uL Nucleated RBC % 0.0 /100WBC Sodium 135 (135-145) mmol/L Potassium 3.6 (3.5-5.0) mmol/L Chloride 107 (101-111) mmol/L Carbon Dioxide 22 (21-32) mmol/L Anion Gap 6.0 (6-13) BUN 11 (6-20) mg/dL Creatinine 0.9 (0.6-1.2) mg/dL Estimated GFR (MDRD) 81 L (>89) Glucose 98 (70-100) mg/dL Glycated Hemoglobin 5.5 (4.6-6.2) % Estim Average Glucose 111 H (70-100) Calcium 8.0 L (8.5-10.3) mg/dL Assessment/Plan - Problem List (1) Sepsis Impression: resolved. came in with diarhhea, slumping to the floor, AMS. In ER hypotensive, tachycardic, elevated WBC and elevated lactic acid. Abcess is only source seen for cause of infection so far. Repeat lactic acid is now normal. Hypotension resolved and now normotensive. WBC is still high. So sepsis has resolved by morning of 05/14. Plan: Transfer to Med Surg Status. Qualifiers: Sepsis type: sepsis due to unspecified organism Qualified Code(s): A41.9 - Sepsis, unspecified organism (2) Abscess Impression: right medial thigh, next to scrotum. He has had filemon intertrigo since this summer and is followed by Dermatology with antifungal cream use. This may have the the cause of his skin breakdown. presented as a small "pea" that came to a head a week ago, sun at home, then grew larger and more purulent and seen in ER 05/11. I&D with cultures showing only nml skin anna and blood cultures neg. Treated with Keflex and Bactrim, Seen by Derm 05/12 to repack wound, and came in with diarhhea, slumping to the floor, AMS. In ER hypotensive, tachycardic, elevated WBC and elevated lactic acid. Abcess is only source seen for cause of infection so far. WBC has not improved with abx. Is still at 13K. Plan: Zosyn and Vancomycin Day #3 daily dressing changes. (3) Diarrhea Impression: sudden in onset day of admission after 3 oral doses of abx. C Dif neg. Campy neg. Cause of dehyration and hypotension as well. It started slowing down by yesterday evening but still there. Maroon, pudding like stool. Cultures are negative for salmonella, shigella, E coli, vibrio. Plan: check stool for FOBT If continued, considering CT abd and pelvis to look for bowel pathology and to look at groin abcess progress but he is slowly improving so hold of on that for now. Qualifiers: Diarrhea type: unspecified type Qualified Code(s): R19.7 - Diarrhea, unspecified (4) ERIBERTO (acute kidney injury) Impression: Resolved. From dehydration and diarrhea. Has responded to IV hydration. UA is negative for UTI. Has a hx of prostate cancer with prostatectomy and residual frequency, urgency and incontinence. IV locked after 2 full liters of NS and taking in enough po per nursing. Plan: Will continue daily BUN, Creat check since he is on Vancomycin. (5) Hyperglycemia Impression: Resolved no history of DM Checked A1c and he was 5.5% no further orders for DM or hyperglycemia. (6) Weakness generalized Impression: Due to severe infection. He needs help sitting up in bed, and going to the bathroom. He is very cooperative with aids. But the is alarmed. She cannot take him home this way. As such I will ask for physical therapy to evaluate and treat and see if he is a candidate for physical therapy in a correction facility. Seen by PT yesterday: "Pt is a 82 y/o male with acute infection, diarrhea, and gross increase weakness and debility s/p sespis dx. Pt on IV hydration and antibiotics with excellent results thus far. Pt very unstable and has moderate to severe shuffled gait but shows potential to improve but will require rehab at SNF to further enhance recovery for mobility but including wound care."
[2017-05-15] MEDS: CHOLESTYRAMINE 4 GM PACKET PO SCH (08:36)
[2017-05-15] MEDS: ENOXAPARIN 40 MG/0.4 ML SYRINGE SUBQ SCH (08:37)
[2017-05-15] MEDS: SACCHAROMYCES BOULARDII 250 MG CAPSULE PO SCH ×2 (10:30→17:25)
[2017-05-15] MEDS: PANTOPRAZOLE 40 MG TABLET PO SCH (11:20)
[2017-05-15] MEDS: FLUCONAZOLE 100 MG TABLET PO SCH (11:21)
[2017-05-15] MEDS: DICLOXACILLIN 250 MG CAPSULE PO SCH ×3 (11:22→22:00)
[2017-05-15] MEDS: NYSTATIN CREAM 15 GM TUBE TOP SCH ×2 (14:07→21:55)
[2017-05-16] MEDS: DICLOXACILLIN 250 MG CAPSULE PO SCH ×4 (04:33→22:35)
[2017-05-16 05:41] LABS: BASOPHILS # (AUTO) 0.1 10^3/uL (0.0-0.1); BASOPHILS % (AUTO) 0.6 %; EOSINOPHILS # (AUTO) 0.2 10^3/uL (0.0-0.7); EOSINOPHILS % (AUTO) 1.9 %; HCT - HEMATOCRIT 35.8 % (42.0-52.0); HGB - HEMOGLOBIN 12.5 g/dL (14.0-18.0); LYMPHOCYTES # (AUTO) 2.1 10^3/uL (1.5-3.5); LYMPHOCYTES % (AUTO) 18.5 %; MEAN CORPUSCULAR HEMOGLOBIN 31.7 pg (27.0-31.0); MEAN CORPUSCULAR VOLUME 90.4 fL (80.0-94.0); MEAN PLATELET VOLUME 8.4 fL (7.4-11.4); MONOCYTES # (AUTO) 0.8 10^3/uL (0.0-1.0); MONOCYTES % (AUTO) 6.7 %; NEUTROPHILS # (AUTO) 8.1 10^3/uL (1.5-6.6); NEUTROPHILS % (AUTO) 72.3 %; RED BLOOD COUNT 3.95 10^6/uL (4.70-6.10); RED CELL DISTRIBUTION WIDTH 12.8 % (12.0-15.0); UNCORRECTED WHITE BLOOD COUNT 11.2 x10^3/uL; WHITE BLOOD COUNT 11.2 x10^3/uL (4.8-10.8)
[2017-05-16 05:45] LABS: CALCIUM 7.9 mg/dL (8.5-10.3); CREATININE 0.9 mg/dL (0.6-1.2); POTASSIUM 3.4 mmol/L (3.5-5.0)
[2017-05-16] MEDS: ACETAMINOPHEN 325 MG TABLET PO PRN (06:19)
[2017-05-16] MEDS: SODIUM CHLORIDE FLUSH 0.9% 10 ML SYRINGE IVP SCH ×3 (06:19→22:36)
[2017-05-16] MEDS: PANTOPRAZOLE 40 MG TABLET PO SCH (06:19)
--- NOTE | 2017-05-16 07:25 | Discharge Plan ---
Discharge Plan for SNF / [facility] - DC Plan and Transition Orders SNF Transition Orders: Admit to: [facility] under the care of Sara Jerez MD Discharge Diagnosis: 1. Generalized weakness from illness 2. diarrhea, FOBT (+): salmonella, shigella, campylobacter, E coli, C. Dif negative 3. 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 right thigh abcess 5. filemon intertrigo since November 2016 6. HTN 7. Hyperlipidemia 8. hx of T1c prostate cancer, s/p retropubic prostatectomy 9. dysphagia with swallow eval in past showing fluid penetration only Medicare Certification: I certify that [facility] care is medically necessary on a continuing basis for any of the conditions for which she/he is receiving care during hospitalization. Notify PCP of admission and forward orders to primary provider for signature. Weight on admission and weekly. Call PCP immediately if weight decreased by 5 pounds or if patient develops dyspnea, chest pain/tightness or edema. House Bowel Program: Yes If no BM after 2 days, nurse may give M.O.M. 30ml PO PRN and /or ducolax Supp 1 MS and /or ITALO 250mg P.O., and/or senna 1-2 tabs PO. On day 3 nurse may give repeat above order until residents constipation is resolved. Immunizations: Annual Influenza Vaccine: yes. (between Feb 11 and September 10.) Unless allergy or already given Two-Step PPD: yes per [facility] 248-235 or appropriate documentation of approved exceptions Treatments & Other Orders: He has right upper thigh next to scotum wound. Wash daily with sterile soap and water. Dry well. Then Continue 1/4" iodoform gauze packing strip tucked into wound. Cover with 2x2 gauze and secure with paper tape or tegaderm. Do NOT use plastic tape. Change dressing daily. Oxygen Orders: none Lab Tests or X-Rays Orders: CBC and CMP in 1 week Orthopedic Orders: none. Medications: PLEASE REFER TO THE DISCHARGE MEDICATION LIST. Insulin Orders? no Diagnosis: no Diabetes Initiate hypo and hyperglycemia protocols for BG <70 and BG >375. May check BG prn for signs/symptoms of dysglycemia. Frequency of BG checks: none Basal Insulin: Lantus 100 units / ml inject subq as follows: none [] Other: [] Correction Insulin: - Select the type of insulin below [Choose: Novolog/Humalog]100 units /ml insulin inject subq per orders indicate below [] LOW DOSE [] MODERATE DOSE [] MODERATE/HIGH DOSE [] HIGH DOSE GB UNITS GB UNITS GB UNITS GB UNITS 61-140 0 UNITS 61-140 0 UNITS 61-140 0 UNITS 61-140 0 UNITS 141-175 1 UNITS 141-175 1 UNITS 141-175 2 UNITS 141-175 3 UNITS 176-225 2 UNITS 176-225 3 UNITS 176-225 4 UNITS 176-225 5 UNITS 226-275 3 UNITS 226-275 5 UNITS 226-275 6 UNITS 226-275 7 UNITS 276-325 4 UNITS 276-325 7 UNITS 276-325 8 UNITS 276-325 9 UNITS 326-375 5 UNITS 326-375 9 UNITS 326-375 10 UNITS 326-375 11 UNITS >375 CONTACT MD >375 CONTACT MD >375 CONTACT MD >375 CONTACT MD Custom Dosing: [Choose: None/Novolog/Humalog] 100 units/ml Insulin inject subq as follows: GB Units 61-140 [] Units 141-175 [] Units 176-225 [] Units 226-275 [] Units 276-325 []Units 326-375 [] Units >375 Contact MD - Diet Type: Geriatric Texture: Regular Liquids: Thin May have monthly special meal: Yes - Therapies | Activity Therapy: Evaluation | Treat if indicated: Speech, PT, OT Rehabilitation Potential: Return to independent living Activity: Activity as Tolerated Assistance Devices: Walker <Gita Jovel - Last Filed: 05/16/17 14:37> - DC Plan and Transition Orders SNF Transition Orders: Admit to: [Facility] under the care of [Doctor Name] Discharge Diagnosis: [] Medicare Certification: I certify that [facility] care care is medically necessary on a continuing basis for any of the conditions for which she/he is receiving care during hospitalization. Notify PCP of admission and forward orders to primary provider for signature. Weight on admission and [Daily/Weekly/Monthly]. Call PCP immediately if weight increases by [Number] pounds or if patient develops dyspnea, chest pain/ tightness or edema. House Bowel Program: [Yes/No] If no BM after 2 days, nurse may give M.O.M. 30ml PO PRN and /or ducolax Supp 1 MS and /or ITALO 250mg P.O., and/or senna 1-2 tabs PO. On day 3 nurse may give repeat above order until residents constipation is resolved. Immunizations: Annual Influenza Vaccine: [Yes/No]. (between Feb 11 and September 10.) Unless allergy or already given Two-Step PPD: [Yes/No] per [facility] 248-235 or appropriate documentation of approved exceptions Treatments & Other Orders: [] Oxygen Orders: [] Lab Tests or X-Rays Orders: [] Orthopedic Orders: [Remove Sutures/[place] and Comment]. Medications: PLEASE REFER TO THE DISCHARGE MEDICATION LIST. Insulin Orders? [Yes/No] Diagnosis: Diabetes Initiate hypo and hyperglycemia protocols for BG <70 and BG >375. May check BG prn for signs/symptoms of dysglycemia. Frequency of BG checks: [AC/Meal/HS] Basal Insulin: [] Lantus 100 units / ml inject subq as follows: [] [] Other: [] Correction Insulin: - Select the type of insulin below [Choose: Novolog/Humalog]100 units /ml insulin inject subq per orders indicate below [] LOW DOSE [] MODERATE DOSE [] MODERATE/HIGH DOSE [] HIGH DOSE GB UNITS GB UNITS GB UNITS GB UNITS 61-140 0 UNITS 61-140 0 UNITS 61-140 0 UNITS 61-140 0 UNITS 141-175 1 UNITS 141-175 1 UNITS 141-175 2 UNITS 141-175 3 UNITS 176-225 2 UNITS 176-225 3 UNITS 176-225 4 UNITS 176-225 5 UNITS 226-275 3 UNITS 226-275 5 UNITS 226-275 6 UNITS 226-275 7 UNITS 276-325 4 UNITS 276-325 7 UNITS 276-325 8 UNITS 276-325 9 UNITS 326-375 5 UNITS 326-375 9 UNITS 326-375 10 UNITS 326-375 11 UNITS >375 CONTACT MD >375 CONTACT MD >375 CONTACT MD >375 CONTACT MD Custom Dosing: [Choose: None/Novolog/Humalog] 100 units/ml Insulin inject subq as follows: GB Units 61-140 [] Units 141-175 [] Units 176-225 [] Units 226-275 [] Units 276-325 []Units 326-375 [] Units >375 Contact <Selena Coleman D - Last Filed: 05/17/17 12:17> - DC Plan and Transition Orders Disposition: 03 [facility] DC/Xfer Condition: Stable Allergies and Adverse Reactions: Allergies Allergy/AdvReac Type Severity Reaction Status Date / Time No Known Drug Allergies Allergy Verified 05/13/17 13:22
[2017-05-16] MEDS: POTASSIUM CHLORIDE 20 MEQ/15 ML UDC PO SCH (08:19)
[2017-05-16] MEDS: SACCHAROMYCES BOULARDII 250 MG CAPSULE PO SCH ×2 (08:19→16:52)
[2017-05-16] MEDS: CHOLESTYRAMINE 4 GM PACKET PO SCH (08:20)
[2017-05-16] MEDS: NYSTATIN CREAM 15 GM TUBE TOP SCH ×2 (08:21→21:01)
[2017-05-16] MEDS: ENOXAPARIN 40 MG/0.4 ML SYRINGE SUBQ SCH (08:21)
[2017-05-16] MEDS: FLUCONAZOLE 100 MG TABLET PO SCH (08:21)
[2017-05-16] MEDS ORDERED: CALCIUM GLUCONATE 1,000 MG in SODIUM CHLORIDE 0.9% 50 ML IV ONE (08:30)
--- NOTE | 2017-05-16 18:14 | PROVIDER PROGRESS NOTE ---
Subjective - Prog Note Date Prog Note Date: 05/16/17 Prog Note Time: 18:16 - Subjective Subjective: He was to be discharged today. I had spoken at length yesterday to his and daughter and the family had initially wanted [facility]. They asked my personal opinion about where I would transfer a loved one and I would transfer my father to [facility] in [place] or [facility] in [place]. After looking into [facility] or [facility] in [place] today there is no bed availability. So back to [facility]. I have transitioned him from IV antibiotics to oral antibiotics. He is up in the room ambulating. Eating. Very cooperative with his nurse. He really is a very pleasant aman man. Current Medications - Current Medications Current Medications: Active Medications Acetaminophen (Tylenol) 650 mg PO Q4HR PRN PRN Reason: Pain 1 to 4 Last Admin: 05/16/17 06:19 Dose: 650 mg Acetaminophen/Hydrocodone Bitart ([place] 5/325) 1 tab PO Q4HR PRN PRN Reason: Pain 5 to 7 Cholestyramine/Sucrose (Questran) 4 gm PO DAILY [facility] Last Admin: 05/16/17 08:20 Dose: 4 gm Dicloxacillin Sodium (Dynapen) 250 mg PO Q6H [facility] Last Admin: 05/16/17 16:52 Dose: 250 mg Diphenoxylate HCl/Atropine (Lomotil) 1 tab PO QID PRN PRN Reason: Diarrhea Last Admin: 05/15/17 04:46 Dose: 1 tab Enoxaparin Sodium (Lovenox) 40 mg SUBQ DAILY [facility] Last Admin: 05/16/17 08:21 Dose: 40 mg Fluconazole (Diflucan) 100 mg PO DAILY [facility] Last Admin: 05/16/17 08:21 Dose: 100 mg Hydromorphone HCl (Dilaudid Inj Syringe) 0.5 mg IVP Q2H PRN PRN Reason: Pain 8 to 10 Nystatin (Mycostatin Cream) 1 applic TOP BID [facility] Last Admin: 05/16/17 08:21 Dose: 1 applic Ondansetron HCl (Zofran Inj) 4 mg IVP Q6HR PRN PRN Reason: Nausea / Vomiting Last Admin: 05/13/17 19:39 Dose: 4 mg Ondansetron HCl (Zofran Odt) 4 mg TL Q6HR PRN PRN Reason: Nausea / Vomiting Pantoprazole Sodium (Protonix) 40 mg PO QDAC [facility] Last Admin: 05/16/17 06:19 Dose: 40 mg Potassium Chloride () 20 meq PO DAILYWM [facility] Last Admin: 05/16/17 08:19 Dose: 20 meq Saccharomyces Boulardii (Florastor) 250 mg PO BIDWM [facility] Last Admin: 05/16/17 16:52 Dose: 250 mg Sodium Chloride (Normal Saline Flush 0.9%) 10 ml IVP Q8HR [facility] Last Admin: 05/16/17 11:39 Dose: 10 ml Sodium Chloride (Normal Saline Flush 0.9%) 10 ml IVP PRN PRN PRN Reason: NEEDED PER PROVIDER ORDERS Last Admin: 05/14/17 18:15 Dose: 10 ml Objective - Vital Signs/Intake & Output Reviewed Vital Signs: Yes Vital Signs: Vital Signs x48h Temp Pulse Resp BP Pulse Ox 05/16/17 14:00 36.5 C 77 16 138/67 H 97 Intake & Output: Intake & Output 05/13/17 05/14/17 05/15/17 05/16/17 23:59 23:59 23:59 23:59 Intake Total 8377.677 4222.877 834 9857 Output Total 1115 1210 1020 1650 Balance 003.017 2051.333 -110 -170 - Objective General Appearance: positive: No acute distress, Alert, Other (still wobby, but able to walk in room with standby assist.) Eyes Bilateral: positive: PERRL, EOMI ENT: positive: No signs of dehydration Neck: negative: Stiff neck, Carotid bruit, Swelling/bruising Respiratory: positive: Chest non-tender. negative: Wheezes, Rales, Rhonchi - Lab Results Fish Bones: 05/16/17 05:11 05/16/17 05:11 Other Labs: Lab Results x24hrs 05/16/17 05/16/17 Range/Units 05:11 05:11 WBC 11.2 H (4.8-10.8) x10^3/uL RBC 3.95 L (4.70-6.10) 10^6/uL Hgb 12.5 L (14.0-18.0) g/dL Hct 35.8 L (42.0-52.0) % MCV 90.4 (80.0-94.0) fL MCH 31.7 H (27.0-31.0) pg MCHC 35.0 (32.0-36.0) g/dL RDW 12.8 (12.0-15.0) % Plt Count 158 (130-450) 10^3/uL MPV 8.4 (7.4-11.4) fL Neut # 8.1 H (1.5-6.6) 10^3/uL Lymph # 2.1 (1.5-3.5) 10^3/uL [place] # 0.8 (0.0-1.0) 10^3/uL Eos # 0.2 (0.0-0.7) 10^3/uL Baso # 0.1 (0.0-0.1) 10^3/uL Absolute Nucleated RBC 0.00 x10^3/uL Nucleated RBC % 0.0 /100WBC Sodium 135 (135-145) mmol/L Potassium 3.4 L (3.5-5.0) mmol/L Chloride 106 (101-111) mmol/L Carbon Dioxide 23 (21-32) mmol/L Anion Gap 6.0 (6-13) BUN 10 (6-20) mg/dL Creatinine 0.9 (0.6-1.2) mg/dL Estimated GFR (MDRD) 81 L (>89) Glucose 91 (70-100) mg/dL Calcium 7.9 L (8.5-10.3) mg/dL Assessment/Plan - Problem List (1) Sepsis Impression: came in with diarhhea, slumping to the floor, AMS. In ER hypotensive, tachycardic, elevated WBC and elevated lactic acid. Abcess is only source seen for cause of infection so far. Repeat lactic acid is now normal. Hypotension resolved and now normotensive. WBC is still high. So sepsis has resolved. Plan: Transfer to Med Surg Status. Qualifiers: Sepsis type: sepsis due to unspecified organism Qualified Code(s): A41.9 - Sepsis, unspecified organism (2) Abscess Impression: right medial thigh, next to scrotum. He has had filemon intertrigo since this summer and is followed by Dermatology with antifungal cream use. This may have the the cause of his skin breakdown. presented as a small "pea" that came to a head a week ago, sun at home, then grew larger and more purulent and seen in ER 05/11. I&D with cultures showing only nml skin anna and blood cultures neg. Treated with Keflex and Bactrim, Seen by Derm 05/12 to repack wound, and came in with diarhhea, slumping to the floor, AMS. In ER hypotensive, tachycardic, elevated WBC and elevated lactic acid. Abcess is only source seen for cause of infection so far. Plan: Zosyn and Vancomycin Day #3. Stop and change to dicloxacillin po daily dressing changes to continue with iodoform packing and covering with kerlex 2x2 His filemon intertrigo is being treated by nystatin cream and oral diflucan. (3) Diarrhea Impression: sudden in onset day of admission after 3 oral doses of abx. C Dif neg. Campy neg. Culture is pending. Cause of dehyration and hypotension as well. Plan: check stool for FOBT which was (+) but no real drop in hgb indicating GI bleed. ?colitis. all cultures for stool have been negative. NO CT of abd needed since exam has soft bowel, benign and he's eating. Qualifiers: Diarrhea type: unspecified type Qualified Code(s): R19.7 - Diarrhea, unspecified (4) ERIBERTO (acute kidney injury) Impression: Resolved. From dehydration and diarrhea. Has responded to IV hydration. UA is negative for UTI. Has a hx of prostate cancer with prostatectomy and residual frequency, urgency and incontinence. Plan: IV lock after 2 full liters of NS (5) Hyperglycemia Impression: no history of DM Plan: Check A1c (6) Weakness generalized Impression: Due to severe infection. He needs help sitting up in bed, and going to the bathroom. He is very cooperative with aids. But the is alarmed. She cannot take him home this way. As such I will ask for physical therapy to evaluate and treat and see if he is a candidate for physical therapy in a care home facility. They did see him and feel he is a candidate for therapy. (7) Hypokalemia Impression: supplement po and check in the am.
[2017-05-16] MEDS ORDERED: HALOPERIDOL 5 MG/ML VIAL IVP ONE (22:11)
[2017-05-17] MEDS: DICLOXACILLIN 250 MG CAPSULE PO SCH ×2 (05:23→10:25)
[2017-05-17] MEDS: PANTOPRAZOLE 40 MG TABLET PO SCH (05:23)
[2017-05-17] MEDS: SODIUM CHLORIDE FLUSH 0.9% 10 ML SYRINGE IVP PRN (05:24)
[2017-05-17] MEDS: SODIUM CHLORIDE FLUSH 0.9% 10 ML SYRINGE IVP SCH ×2 (05:24→10:20)
[2017-05-17 05:38] VITALS: BP 136/85
[2017-05-17] MEDS: POTASSIUM CHLORIDE 20 MEQ/15 ML UDC PO SCH (07:36)
[2017-05-17] MEDS: SACCHAROMYCES BOULARDII 250 MG CAPSULE PO SCH (07:36)
--- NOTE | 2017-05-17 07:54 | DISCHARGE SUMMARY ---
DATE OF ADMISSION: 05/13/2017 DATE OF DISCHARGE: 05/17/2017 DISCHARGE DIAGNOSES 1. Sepsis. 2. Metabolic encephalopathy. 3. Soft tissue abscess, right thigh. 4. Amber intertrigo. 5. Acute kidney injury. 6. Dehydration. 7. Vascular dementia. 8. Diarrhea. DISCHARGE MEDICATIONS 1. Tylenol 650 mg p.o. q.4 hours p.r.n. 2. Questran 4 grams p.o. b.i.d. daily until diarrhea stops. 3. Dicloxacillin 250 mg p.o. q.6 hours for 6 more days. 4. Diflucan 100 mg p.o. daily for 6 more days. 5. Losartan and hydrochlorothiazide 50 mg/12.5 mg p.o. daily. 6. Nystatin cream applied topically to intertriginous folds of groin. 7. Protonix 40 mg p.o. daily. 8. Simvastatin 40 mg p.o. daily. PRINCIPAL PROCEDURES 1. Chest x-ray showing no acute infiltrate and otherwise normal single view chest. 2. Stool studies for Clostridium difficile, campylobacter, salmonella, shigella, Escherichia coli, ye rsinia and vibrio negative. 3. Fecal occult blood stool positive. HOSPITAL COURSE: This gentleman is an 82-year-old, white male who has vascular dementia and needs pre tty much 03/01 care. In November of this year, his had to have back surgery and she had to put him in [facility]. It only lasted about 2 weeks, and he was utterly miserable, and the family was disconten romel with his care there, so he went to go live with his daughter. His still continued to live in their own home. Eventually, they sold their own home and moved across the street from their daughter . He has been home with his only very recently. He is impulsive, but compliant. He will walk meera y and they have to keep an eye on him. He walks with a wide-based, bowlegged gait because of spinal s tenosis. He needs help with dressing and will put on 4 shirts, pants inside out, but he can feed hims elf. He can get up and walk across the room to the bathroom. He needs a lot of prompting because of h is memory loss. 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 About a week ago, they noticed a small, pea-sized lump underne ath the skin just lateral to the scrotum, below the right groin. Upper medial thigh. You could roll i t underneath the skin between 2 fingers; it was that small. Then it came to head and they lanced it. A few days after that, the area had grown significantly, was black, had bloody discharge and smelled awful. They brought him to the emergency room and he was afebrile, normotensive. White cell count was 10.8. It was incised and debrided, and packed by iodoform gauze. CT of the pelvis had right medial t high skin thickening without drainable fluid collection. He was sent home on Keflex and Bactrim, and was due to see Dr. Dumont on May 18. He saw the alum plant supervisor on the , and the wound dressi ng was removed, and the groin was repacked. Today, around noon time, he developed sudden diarrhea. On one of his trips to the bathroom, he started taking very badly. He could not get off the toilet and, when he finally did stand, he slowly sank back down to the floor because of weakness. He was more co nfused than his usual baseline confusion. They called for the son-in-law across the street to come he lp him be picked up. They could not get him off the floor, and they called EMS. While initially he had normal vital signs, 3 hours later he developed severe rigors, hypotension, radha vated white cell count. Lactic acid was elevated. BUN and creatinine were slightly worse than Novembe r 29. As such, he was admitted with sepsis from a groin wound. He was also felt to have the soft tiss ue abscess of the right thigh. Amber intertrigo was present on exam. He was felt to have mild acute kidney injury from dehydration, and his vascular dementia was stable with no behavioral disturbance. The diarrhea was quite impressive. At times, it looked like maroon pudding, and it was fecal occult blood positive, but it was not bright red. There was no darkness or bad smell to it. All stool cultur es were negative. The differential diagnosis for the diarrhea was even entertained as ischemic bowel, but he never had abdominal pain. The belly exam always remained stable. The diarrhea was treated with Eryn Mcfarland and responded quite nicely to that. He still had an occasional loose stool at discharge, but the fr equency and amount had abated considerably. He was eating his meals. At all times he remained a very, very pleasant gentleman who was easily prompted. His BUN and creatinine normalized. Amber intertri go was treated with Nystatin cream, and he was started on Diflucan. It is anticipated he may need up to 3 weeks of Diflucan therapy. The soft tissue abscess of the right thigh was clean, and packed with iodoform again. It is recommended in the outpatient setting that he continue to be cleaned daily and his iodoform packing daily. Sepsis with his hypotension, elevated white cell count, lactic acid all resolved with IV hydration and treatment of antibiotics. Because he is weak, very wobbly on his legs as of his illness, physical therapy consult was obtained. He is able to follow cues, and is forgetful and needs repetition. He got very fatigued after 30 feet . It is recommended that he should be progressed with his gait disturbance and his independence at a SNF, and then allow him to return to home. At discharge, temperature is Greater than 30 minutes was spent in coordinating discharge. This discharge summary was in substance dictated the night before discharge, and the above physical e xam was dictated after physical exam was done before discharge. JOB #: [id number] EXT JOB #:[id number]
[2017-05-17] MEDS: CHOLESTYRAMINE 4 GM PACKET PO SCH ×2 (09:30→11:10)
[2017-05-17] MEDS: NYSTATIN CREAM 15 GM TUBE TOP SCH (09:31)
[2017-05-17] MEDS: ENOXAPARIN 40 MG/0.4 ML SYRINGE SUBQ SCH (09:31)
[2017-05-17] MEDS: FLUCONAZOLE 100 MG TABLET PO SCH (09:31)
[2017-05-17] MEDS: ONDANSETRON 4 MG/2 ML VIAL IVP PRN (10:20)
--- NOTE | 2017-05-17 12:01 | Discharge Plan ---
"Discharge Plan for SNF / [facility] - DC Plan and Transition Orders Disposition: 03 SNF DC/Xfer Condition: Stable SNF Transition Orders: Admit to: [facility] under the care of Jeffrey Muse, Discharge Diagnosis: [] Medicare Certification: I certify that Post Hospital [facility] care is medically necessary on a continuing basis for any of the conditions for which she/he is receiving care during hospitalization. Notify PCP of admission and forward orders to primary provider for signature. Weight on admission and [Daily/Weekly/Monthly]. Call PCP immediately if weight increases by [Number] pounds or if patient develops dyspnea, chest pain/ tightness or edema. House Bowel Program: [Yes/No] If no BM after 2 days, nurse may give M.O.M. 30ml PO PRN and /or ducolax Supp 1 [place] and /or ITALO 250mg P.O., and/or senna 1-2 tabs PO. On day 3 nurse may give repeat above order until residents constipation is resolved. Immunizations: Annual Influenza Vaccine: [Yes/No]. (between Feb 11 and September 10.) Unless allergy or already given Two-Step PPD: [Yes/No] per [facility] [id number] or appropriate documentation of approved exceptions Treatments & Other Orders: [] Oxygen Orders: [] Lab Tests or X-Rays Orders: [] Orthopedic Orders: [Remove Sutures/Scott and Comment]. Medications: PLEASE REFER TO THE DISCHARGE MEDICATION LIST. Insulin Orders? [Yes/No] Diagnosis: Diabetes Initiate hypo and hyperglycemia protocols for BG <70 and BG >375. May check BG prn for signs/symptoms of dysglycemia. Frequency of BG checks: [AC/Meal/HS] Basal Insulin: [] Lantus 100 units / ml inject subq as follows: [] [] Other: [] Correction Insulin: - Select the type of insulin below [Choose: Novolog/Humalog]100 units /ml insulin inject subq per orders indicate below [] LOW DOSE [] MODERATE DOSE [] MODERATE/HIGH DOSE [] HIGH DOSE GB UNITS GB UNITS GB UNITS GB UNITS 61-140 0 UNITS 61-140 0 UNITS 61-140 0 UNITS 61-140 0 UNITS 141-175 1 UNITS 141-175 1 UNITS 141-175 2 UNITS 141-175 3 UNITS 176-225 2 UNITS 176-225 3 UNITS 176-225 4 UNITS 176-225 5 UNITS 226-275 3 UNITS 226-275 5 UNITS 226-275 6 UNITS 226-275 7 UNITS 276-325 4 UNITS 276-325 7 UNITS 276-325 8 UNITS 276-325 9 UNITS 326-375 5 UNITS 326-375 9 UNITS 326-375 10 UNITS 326-375 11 UNITS >375 CONTACT MD >375 CONTACT MD >375 CONTACT MD >375 CONTACT MD Custom Dosing: [Choose: None/Novolog/Humalog] 100 units/ml Insulin inject subq as follows: GB Units 61-140 [] Units 141-175 [] Units 176-225 [] Units 226-275 [] Units 276-325 []Units 326-375 [] Units >375 Contact MD Allergies and Adverse Reactions: Allergies Allergy/AdvReac Type Severity Reaction Status Date / Time No Known Drug Allergies Allergy Verified 05/13/17 13:22 - Diet Type: Geriatric Texture: Regular Liquids: Thin May have monthly special meal: Yes - Therapies | Activity Therapy: Evaluation | Treat if indicated: PT, OT Rehabilitation Potential: Maximize functional status Activity: Activity as Tolerated"
== END 2017-05-17 13:00 | DRG 871 ==
LOC: EDUNIT# → EDBD → ED 12:59 → ICU 16:59
PROVIDERS: ADMIT Specialist; ATTEND Internal Medicine
DX: A41.9 Sepsis, unspecified organism (principal); I95.9 Hypotension, unspecified; G93.41 Metabolic encephalopathy; L02.415 Cutaneous abscess of right lower limb; N17.9 Acute kidney failure, unspecified; E78.00 Pure hypercholesterolemia, unspecified; I25.10 Atherosclerotic heart disease of native coronary artery without angina pectoris; G30.9 Alzheimer's disease, unspecified; F02.80 Dementia in other diseases classified elsewhere, unspecified severity, without behavioral disturbance, psychotic disturbance, mood disturbance, and anxiety; K21.9 Gastro-esophageal reflux disease without esophagitis; R65.20 Severe sepsis without septic shock; Z96.659 Presence of unspecified artificial knee joint; E87.2 Acidosis; Z79.899 Other long term (current) drug therapy; B37.2 Candidiasis of skin and nail; E86.0 Dehydration; R19.7 Diarrhea, unspecified; R19.5 Other fecal abnormalities; F01.50 Vascular dementia, unspecified severity, without behavioral disturbance, psychotic disturbance, mood disturbance, and anxiety; I11.9 Hypertensive heart disease without heart failure; I35.8 Other nonrheumatic aortic valve disorders; E78.5 Hyperlipidemia, unspecified; I10 Essential (primary) hypertension; R73.9 Hyperglycemia, unspecified; R35.0 Frequency of micturition; R32 Unspecified urinary incontinence; M48.00 Spinal stenosis, site unspecified; R13.10 Dysphagia, unspecified; M40.209 Unspecified kyphosis, site unspecified; M19.90 Unspecified osteoarthritis, unspecified site; Z96.651 Presence of right artificial knee joint; Z66 Do not resuscitate; Z87.440 Personal history of urinary (tract) infections; Z85.46 Personal history of malignant neoplasm of prostate; Z86.010 Personal history of colon polyps; Z85.820 Personal history of malignant melanoma of skin; Z85.828 Personal history of other malignant neoplasm of skin; Z90.79 Acquired absence of other genital organ(s); Z87.891 Personal history of nicotine dependence
CPT/HCPCS: 36415; 51702; 71010; 80048; 80053; 81001; 81003; 82270; 83036; 83605; 83690; 85025; 87045; 87046; 87086; 87150; 87493; 96360; 99284; 99285

== ENCOUNTER 2017-05-17 13:07 | Outpatient (CLI) | payer MEDICARE, OTHER | END 2017-05-17 13:08 | LOC: EMS 13:07 | PROVIDERS: ATTEND Surgery | DX: F03.90 Unspecified dementia, unspecified severity, without behavioral disturbance, psychotic disturbance, mood disturbance, and anxiety (principal); R19.7 Diarrhea, unspecified; R53.1 Weakness; L02.415 Cutaneous abscess of right lower limb | CPT/HCPCS: A0425; A0428 ==

== ENCOUNTER 2017-05-24 15:02 | Outpatient (CLI) | payer MEDICARE, OTHER ==
[2017-05-24 23:45] LABS: BASOPHILS # (AUTO) 0.1 10^3/uL (0.0-0.1); BASOPHILS % (AUTO) 0.9 %; EOSINOPHILS # (AUTO) 0.2 10^3/uL (0.0-0.7); EOSINOPHILS % (AUTO) 2.2 %; HCT - HEMATOCRIT 36.6 % (42.0-52.0); HGB - HEMOGLOBIN 12.8 g/dL (14.0-18.0); LYMPHOCYTES # (AUTO) 2.5 10^3/uL (1.5-3.5); LYMPHOCYTES % (AUTO) 27.4 %; MEAN CORPUSCULAR HEMOGLOBIN 32.1 pg (27.0-31.0); MEAN CORPUSCULAR HGB CONC 34.9 g/dL (32.0-36.0); MEAN CORPUSCULAR VOLUME 92.1 fL (80.0-94.0); MEAN PLATELET VOLUME 8.5 fL (7.4-11.4); MONOCYTES # (AUTO) 0.7 10^3/uL (0.0-1.0); MONOCYTES % (AUTO) 7.9 %; NEUTROPHILS # (AUTO) 5.6 10^3/uL (1.5-6.6); NEUTROPHILS % (AUTO) 61.6 %; RED BLOOD COUNT 3.98 10^6/uL (4.70-6.10); RED CELL DISTRIBUTION WIDTH 13.2 % (12.0-15.0); UNCORRECTED WHITE BLOOD COUNT 9.1 x10^3/uL; WHITE BLOOD COUNT 9.1 x10^3/uL (4.8-10.8)
[2017-05-24 23:58] LABS: ALBUMIN/GLOBULIN RATIO 1.3 (1.0-2.2); BILIRUBIN,TOTAL 0.4 mg/dL (0.2-1.0); CALCIUM 8.9 mg/dL (8.5-10.3); CREATININE 1.2 mg/dL (0.6-1.2); POTASSIUM 3.5 mmol/L (3.5-5.0); TOTAL PROTEIN 6.3 g/dL (6.7-8.2)
== END 2017-05-24 15:03 | disposition home or self-care (01) ==
LOC: LAB.R 15:02
DX: I10 Essential (primary) hypertension (principal); D64.9 Anemia, unspecified
CPT/HCPCS: 80053; 85025

== ENCOUNTER 2017-08-05 08:00 | Outpatient (CLI) | payer MEDICARE, OTHER ==
[2017-08-05 10:42] LABS: BASOPHILS # (AUTO) 0.1 10^3/uL (0.0-0.1); BASOPHILS % (AUTO) 0.9 %; EOSINOPHILS # (AUTO) 0.2 10^3/uL (0.0-0.7); EOSINOPHILS % (AUTO) 3.1 %; HGB - HEMOGLOBIN 13.8 g/dL (14.0-18.0); LYMPHOCYTES # (AUTO) 1.6 10^3/uL (1.5-3.5); LYMPHOCYTES % (AUTO) 22.2 %; MEAN CORPUSCULAR HEMOGLOBIN 31.5 pg (27.0-31.0); MEAN CORPUSCULAR HGB CONC 34.9 g/dL (32.0-36.0); MEAN CORPUSCULAR VOLUME 90.3 fL (80.0-94.0); MEAN PLATELET VOLUME 8.9 fL (7.4-11.4); MONOCYTES # (AUTO) 0.4 10^3/uL (0.0-1.0); MONOCYTES % (AUTO) 5.7 %; NEUTROPHILS # (AUTO) 5.1 10^3/uL (1.5-6.6); NEUTROPHILS % (AUTO) 68.1 %; PLT - PLATELET COUNT 163 10^3/uL (130-450); RED BLOOD COUNT 4.37 10^6/uL (4.70-6.10); RED CELL DISTRIBUTION WIDTH 12.8 % (12.0-15.0); WHITE BLOOD COUNT 7.4 x10^3/uL (4.8-10.8)
[2017-08-05 11:08] LABS: ALBUMIN 3.9 g/dL (3.2-5.5); ALBUMIN/GLOBULIN RATIO 1.4 (1.0-2.2); BILIRUBIN,TOTAL 1.1 mg/dL (0.2-1.0); TOTAL PROTEIN 6.7 g/dL (6.7-8.2)
== END 2017-08-05 08:01 | disposition home or self-care (01) ==
LOC: LAB.R 08:00
PROVIDERS: ATTEND Family Medicine
DX: R41.89 Other symptoms and signs involving cognitive functions and awareness (principal); R41.81 Age-related cognitive decline; I25.10 Atherosclerotic heart disease of native coronary artery without angina pectoris
CPT/HCPCS: 80053; 85025

== ENCOUNTER 2017-08-18 08:00 | Outpatient (CLI) | payer MEDICARE, OTHER ==
[2017-08-18 17:53] LABS: BILIRUBIN,URINE NEGATIVE (NEGATIVE); GLUCOSE, URINE (UA) NEGATIVE (NEGATIVE); KETONES,URINE (UA) NEGATIVE (NEGATIVE); LEUKOCYTE ESTERASE, URINE LARGE (NEGATIVE); NITRITE,URINE POSITIVE (NEGATIVE); OCCULT BLOOD,URINE MODERATE (NEGATIVE); PROTEIN,URINE NEGATIVE (NEGATIVE); UROBILINOGEN,URINE 0.2 (NORMAL) E.U./dL (NORMAL)
[2017-08-18 17:54] LABS: CLARITY,URINE CLEAR (CLEAR)
[2017-08-18 18:06] LABS: BACTERIA,URINE Moderate /HPF (None Seen); MUCUS,URINE Few Strands; SQUAMOUS EPITHELIAL CELL,UR FEW Squamous (<= Few); WBC CLUMPS,URINE PRESENT
== END 2017-08-18 08:01 | disposition home or self-care (01) ==
LOC: LAB.F 08:00
PROVIDERS: ATTEND Family Medicine
DX: R30.0 Dysuria (principal)
CPT/HCPCS: 81001; 81003

== ENCOUNTER 2017-09-05 08:22 | Emergency (ER) | payer MEDICARE, OTHER ==
--- NOTE | 2017-09-05 08:49 | ED Physician Documentation ---
PD HPI MALE - Stated complaint Stated Complaint: MALE /CATH ISSUE - Chief complaint Chief Complaint: General - History obtained from History obtained from: Patient, Family - History of Present Illness Timing - onset: Today (awoke with some lower abd cramping fullness and his sneed was not draining (empty bag and usually would have some from overnight. Home health nurse came and tried to irrigate it but was not able to get return flow. Referred him to ED for replacement.) Timing - duration: Hours Timing - details: Abrupt onset, Still present Associated symptoms: Indwelling catheter, Sneed problem (no drainage from sneed but was leaking some urine around it and thus wetting Depends this morning.). No: Dysuria PD HPI MALE CONTRIB FACTORS: Indwelling catheter (since last April or around then.) Similar symptoms before: Has not had sx before Review of Systems Constitutional: denies: Fever, Chills Nose: denies: Rhinorrhea / runny nose, Congestion Throat: denies: Sore throat Cardiac: denies: Chest pain / pressure Respiratory: denies: Cough GI: reports: Nausea. denies: Abdominal Pain, Vomiting : reports: Sneed Problem. denies: Testicular pain, Testicular mass PD PAST MEDICAL HISTORY - Past Medical History Cardiovascular: Hypertension, High cholesterol, Coronary artery disease Respiratory: None Neuro: Alzhiemer's GI: GERD : Other Psych: None Musculoskeletal: Osteoarthritis, Other Derm: None - Past Surgical History Past Surgical History: Yes General: Colonoscopy Ortho: Knee replacement Cardiovascular: Coronary stent HEENT: Tonsil/Adenoidectomy - Present Medications Home Medications: Ambulatory Orders Medication Instructions Recorded Confirmed Acetaminophen [Tylenol] 650 mg PO Q4HR PRN tablet 05/16/17 Cholestyramine [Questran] 4 gm PO DAILY packet 05/16/17 Dicloxacillin [Dynapen] 250 mg PO Q6H capsule 05/16/17 Fluconazole [Diflucan] 100 mg PO DAILY tablet 05/16/17 Losartan/Hydrochlorothiazide 1 tab PO DAILY #0 05/16/17 05/14/17 [Losartan-Hctz 50-12.5 mg Tab] Nystatin Cream [Mycostatin Cream] 1 applic TOP BID tube 05/16/17 Pantoprazole [Protonix] 40 mg PO QDAC tablet 05/16/17 Simvastatin 40 mg PO QPM #0 05/16/17 05/14/17 Nitrofurantoin Monohyd/M-Cryst 100 mg PO BID #20 capsule 09/05/17 [Macrobid 100 mg Capsule] - Allergies Allergies/Adverse Reactions: Allergies Allergy/AdvReac Type Severity Reaction Status Date / Time No Known Drug Allergies Allergy Verified 09/05/17 08:39 - Social History Does the pt smoke?: No Smoking Status: Never smoker Does the pt drink ETOH?: Yes Does the pt have substance abuse?: No - Immunizations Immunizations: TDAP >10years/unknown - POLST Patient has POLST: No PD ED PE NORMAL - Vitals Vital signs reviewed: Yes - General General: Alert and oriented X 3, No acute distress, Well developed/nourished - Abdomen Abdomen: Normal bowel sounds, Soft, Non tender - Male Male : Immigration Consultant present (), Other (sneed in place with normal meatus, no signs of infection. Lower abd without any fullness and masses) - Rectal Rectal: Deferred - Back Back: No CVA TTP - Derm Derm: Normal color, Warm and dry - Extremities Extremities: No deformity, No tenderness to palpate, No edema, No calf tenderness / cord - Neuro Neuro: Alert and oriented X 3, No motor deficit, Normal speech Eye Opening: Spontaneous Motor: Obeys Commands Verbal: Oriented GCS Score: 15 - Psych Psych: Normal mood Results - Vitals Vitals: Vital Signs - 24 hr 09/05/17 09/05/17 08:22 11:24 Temperature 36.5 C Heart Rate 68 82 Respiratory 18 17 Rate Blood Pressure 142/90 H 162/100 H O2 Saturation 99 100 Oxygen O2 Source [With Activity] Room air O2 Source Room air - Labs Labs: Laboratory Tests 09/05/17 09:38 Urine Color LT RED Urine Clarity CLOUDY Urine pH 7.5 Ur Specific [place] 1.015 Urine Protein NEGATIVE Urine Glucose (UA) NEGATIVE Urine Ketones NEGATIVE Urine Occult Blood LARGE H Urine Nitrite POSITIVE H Urine Bilirubin NEGATIVE Urine Urobilinogen 0.2 (NORMAL) Ur Leukocyte Esterase SMALL H Urine RBC TNTC H Urine WBC 6-10 H Ur Squamous Epith Cells NONE SEEN Urine Bacteria Moderate H Ur Microscopic Review INDICATED Urine Culture Comments INDICATED PD MEDICAL DECISION MAKING - ED course Complexity details: re-evaluated patient (nursing replaced the sneed and is draining well. UA appears like UTI. ), d/w patient Departure - Departure Disposition: 01 Home, Self Care Clinical Impression: Sneed catheter problem Qualifiers: Encounter type: initial encounter Qualified Code(s): T83.9XXA - Unspecified complication of genitourinary prosthetic device, implant and graft, initial encounter UTI (urinary tract infection) Qualifiers: Urinary tract infection type: catheter-associated UTI Indwelling urinary catheter type: indwelling urethral catheter Encounter type: initial encounter Qualified Code(s): T83.511A - Infection and inflammatory reaction due to indwelling urethral catheter, initial encounter Condition: Stable Record reviewed to determine appropriate education?: Yes Instructions: ED Catheter Care Sneed, ED UTI Cystitis Male Follow-Up: Micha Murphy MD [Primary Care Provider] - Prescriptions: Nitrofurantoin Monohyd/M-Cryst [Macrobid 100 mg Capsule] 100 mg PO BID #20 capsule Comments: Continue the normal Sneed catheter care. He could irrigate it daily for the next few days to try to keep sediment from building up. He could irrigate it if it seems to not be flowing properly. Return if needed. There does appear to be an infection will start an antibiotic Macrobid twice daily for 10 days. The culture will result in a few days to see if the antibiotics need changing or not. Discharge Date/Time: 09/05/17 11:31
[2017-09-05 09:49] LABS: BILIRUBIN,URINE NEGATIVE (NEGATIVE); GLUCOSE, URINE (UA) NEGATIVE (NEGATIVE); KETONES,URINE (UA) NEGATIVE (NEGATIVE); LEUKOCYTE ESTERASE, URINE SMALL (NEGATIVE); NITRITE,URINE POSITIVE (NEGATIVE); OCCULT BLOOD,URINE LARGE (NEGATIVE); PH,URINE 7.5 PH (5.0-7.5); PROTEIN,URINE NEGATIVE (NEGATIVE); UROBILINOGEN,URINE 0.2 (NORMAL) E.U./dL (NORMAL)
[2017-09-05 09:57] LABS: CLARITY,URINE CLOUDY (CLEAR)
[2017-09-05 09:58] LABS: BACTERIA,URINE Moderate /HPF (None Seen); RBC,URINE TNTC /HPF (0-5); SQUAMOUS EPITHELIAL CELL,UR NONE SEEN (<= Few)
[2017-09-05] MEDS ORDERED: NITROFURANTOIN MACRO 100 MG CAPSULE PO STA (10:53)
[2017-09-05 11:27] VITALS: BP 162/100
== END 2017-09-05 11:31 | disposition home or self-care (01) ==
LOC: ED 08:22
DX: T83.9XXA Unspecified complication of genitourinary prosthetic device, implant and graft, initial encounter (principal); T83.511A Infection and inflammatory reaction due to indwelling urethral catheter, initial encounter; I10 Essential (primary) hypertension; E78.00 Pure hypercholesterolemia, unspecified; I25.10 Atherosclerotic heart disease of native coronary artery without angina pectoris; G30.9 Alzheimer's disease, unspecified; F02.80 Dementia in other diseases classified elsewhere, unspecified severity, without behavioral disturbance, psychotic disturbance, mood disturbance, and anxiety; K21.9 Gastro-esophageal reflux disease without esophagitis; M19.90 Unspecified osteoarthritis, unspecified site
CPT/HCPCS: 51702; 81001; 87086; 99283; A9270; 81003

== ENCOUNTER 2017-10-06 08:00 | Outpatient (CLI) | payer MEDICARE, OTHER ==
[2017-10-06 17:28] LABS: BILIRUBIN,URINE NEGATIVE (NEGATIVE); GLUCOSE, URINE (UA) NEGATIVE (NEGATIVE); KETONES,URINE (UA) NEGATIVE (NEGATIVE); LEUKOCYTE ESTERASE, URINE LARGE (NEGATIVE); NITRITE,URINE NEGATIVE (NEGATIVE); OCCULT BLOOD,URINE TRACE-INTA (NEGATIVE); PROTEIN,URINE NEGATIVE (NEGATIVE); UROBILINOGEN,URINE 0.2 (NORMAL) E.U./dL (NORMAL)
[2017-10-06 17:31] LABS: CLARITY,URINE CLOUDY (CLEAR)
[2017-10-06 18:35] LABS: WBC CLUMPS,URINE PRESENT
[2017-10-06 18:36] LABS: BACTERIA,URINE Few /HPF (None Seen); SQUAMOUS EPITHELIAL CELL,UR NONE SEEN (<= Few)
== END 2017-10-06 08:01 | disposition home or self-care (01) ==
LOC: LAB.R 08:00
PROVIDERS: ATTEND Family Medicine
DX: N39.0 Urinary tract infection, site not specified (principal)
CPT/HCPCS: 81001; 81003; 87077; 87086

== ENCOUNTER 2017-11-25 17:20 | Outpatient (CLI) | payer MEDICARE, OTHER ==
[2017-11-25 18:21] LABS: BILIRUBIN,URINE NEGATIVE (NEGATIVE); GLUCOSE, URINE (UA) NEGATIVE (NEGATIVE); KETONES,URINE (UA) NEGATIVE (NEGATIVE); LEUKOCYTE ESTERASE, URINE LARGE (NEGATIVE); NITRITE,URINE POSITIVE (NEGATIVE); OCCULT BLOOD,URINE LARGE (NEGATIVE); PROTEIN,URINE 30 mg/dL (NEGATIVE); UROBILINOGEN,URINE 0.2 (NORMAL) E.U./dL (NORMAL)
[2017-11-25 18:23] LABS: CLARITY,URINE CLOUDY (CLEAR)
[2017-11-25 18:33] LABS: BACTERIA,URINE Many /HPF (None Seen); RBC,URINE TNTC /HPF (0-5); SQUAMOUS EPITHELIAL CELL,UR RARE Squamous (<= Few); WBC CLUMPS,URINE PRESENT
== END 2017-11-25 17:21 | disposition home or self-care (01) ==
LOC: LAB.R 17:20
PROVIDERS: ATTEND Family Medicine
DX: N39.0 Urinary tract infection, site not specified (principal)
CPT/HCPCS: 81001; 87077; 87086; 87181

== ENCOUNTER 2018-04-22 15:38 | Outpatient (CLI) | payer MEDICARE, OTHER | END 2018-04-22 15:39 | disposition critical access hospital (66) | LOC: EMS 15:38 | PROVIDERS: ATTEND Surgery | DX: R56.9 Unspecified convulsions (principal) | CPT/HCPCS: A0425; A0427 ==

== ENCOUNTER 2018-04-22 15:52 | Inpatient (IN) | payer MEDICARE, OTHER ==
[2018-04-22 16:30] LABS: GLUCOSE, URINE (UA) NEGATIVE (NEGATIVE); KETONES,URINE (UA) TRACE mg/dL (NEGATIVE); LEUKOCYTE ESTERASE, URINE LARGE (NEGATIVE); NITRITE,URINE POSITIVE (NEGATIVE); OCCULT BLOOD,URINE NEGATIVE (NEGATIVE); PH,URINE 8.5 PH (5.0-7.5); PROTEIN,URINE 30 mg/dL (NEGATIVE); UROBILINOGEN,URINE 1 (NORMAL) E.U./dL (NORMAL)
[2018-04-22 16:36] LABS: CLARITY,URINE HAZY (CLEAR)
[2018-04-22 16:37] LABS: BASOPHILS # (AUTO) 0.1 10^3/uL (0.0-0.1); BASOPHILS % (AUTO) 0.5 %; EOSINOPHILS # (AUTO) 0.2 10^3/uL (0.0-0.7); EOSINOPHILS % (AUTO) 1.8 %; HGB - HEMOGLOBIN 13.2 g/dL (14.0-18.0); LYMPHOCYTES # (AUTO) 1.3 10^3/uL (1.5-3.5); LYMPHOCYTES % (AUTO) 12.5 %; MEAN CORPUSCULAR HEMOGLOBIN 32.6 pg (27.0-31.0); MEAN CORPUSCULAR HGB CONC 34.8 g/dL (32.0-36.0); MEAN CORPUSCULAR VOLUME 93.7 fL (80.0-94.0); MEAN PLATELET VOLUME 8.3 fL (7.4-11.4); MONOCYTES # (AUTO) 0.5 10^3/uL (0.0-1.0); NEUTROPHILS # (AUTO) 8.5 10^3/uL (1.5-6.6); NEUTROPHILS % (AUTO) 80.2 %; PLT - PLATELET COUNT 202 10^3/uL (130-450); RED BLOOD COUNT 4.04 10^6/uL (4.70-6.10); RED CELL DISTRIBUTION WIDTH 12.7 % (12.0-15.0); WHITE BLOOD COUNT 10.6 x10^3/uL (4.8-10.8)
[2018-04-22 16:45] LABS: CALCIUM 8.8 mg/dL (8.5-10.3); CREATININE 1.1 mg/dL (0.6-1.2)
[2018-04-22 16:46] LABS: BACTERIA,URINE Many /HPF (None Seen); ICTOTEST,URINE NEGATIVE; RBC,URINE 0-5 /HPF (0-5); SQUAMOUS EPITHELIAL CELL,UR NONE SEEN (<= Few)
[2018-04-22 16:47] LABS: BILIRUBIN,URINE NEGATIVE (NEGATIVE)
--- NOTE | 2018-04-22 17:01 | ED Physician Documentation ---
History of Present Illness - Stated complaint Stated Complaint: SZ - Chief complaint Chief Complaint: Neuro - Additonal information Additional information: hx from pt 83 male alzhemiers lives with family no POLST but scanned advanced directives indicate no CPR no respirator no blood transfusion, ab and IVF OK he was at his baseline today went for a walk came back and sat to eat he had approx 90 seconds of seizure activity with head twisted R and tonic activity of upper ext and unresponsive per EMS does not think he was breathing no VS were taken during but shortly after took VS and HR was about 50 and BP was fine he was briefly post ictal then recovered no fall pt is confused but denies CHERRY no CP maybe some abd discomfort but he answers both yes and no no reported fever cough NVD he has been constipated per EMS pt was pale and diaphoretic and has become progressively more hypotensive en route given 200 cc NS en route family coming Review of Systems Constitutional: denies: Fever, Chills Cardiac: denies: Chest pain / pressure Respiratory: denies: Dyspnea GI: reports: Constipation. denies: Abdominal Pain, Nausea, Vomiting Neurologic: reports: Syncope, Seizure, Altered mental status. denies: Headache, Head injury Endocrine: denies: Easy bruising / bleeding Immunocompromised: denies: Immunocompromised PD PAST MEDICAL HISTORY - Past Medical History Cardiovascular: Hypertension, High cholesterol, Coronary artery disease Respiratory: None GI: GERD : Other Psych: None Musculoskeletal: Osteoarthritis, Other Derm: None - Past Surgical History Past Surgical History: Yes General: Colonoscopy Ortho: Knee replacement Cardiovascular: Coronary stent HEENT: Tonsil/Adenoidectomy - Present Medications Home Medications: Ambulatory Orders Medication Instructions Recorded Confirmed Acetaminophen [Tylenol] 650 mg PO Q4HR PRN tablet 05/16/17 Losartan/Hydrochlorothiazide 1 tab PO DAILY #0 05/16/17 05/14/17 [Losartan-Hctz 50-12.5 mg Tab] Nystatin Cream [Mycostatin Cream] 1 applic TOP BID tube 05/16/17 Nitrofurantoin Monohyd/M-Cryst 100 mg PO BID #20 capsule 09/05/17 [Macrobid 100 mg Capsule] - Allergies Allergies/Adverse Reactions: Allergies Allergy/AdvReac Type Severity Reaction Status Date / Time No Known Drug Allergies Allergy Verified 04/22/18 16:02 - Social History Does the pt smoke?: No Smoking Status: Never smoker Does the pt drink ETOH?: Yes Does the pt have substance abuse?: No - Immunizations Immunizations: TDAP >10years/unknown - POLST Patient has POLST: No PD ED PE NORMAL - Vitals Vital signs reviewed: Yes - General General: No: Alert and oriented X 3 (alzheimers) - HEENT HEENT: PERRL (2) - Neck Neck: Supple, no meningeal sign - Cardiac Cardiac: RRR - Respiratory Respiratory: No respiratory distress, Clear bilaterally - Abdomen Abdomen: Soft, Non tender, Other (no pulsatile mass) - Derm Derm: Other (pale cool diaphoretic) - Neuro Neuro: Other (confused, moves all ext). No: Alert and oriented X 3 Results - Vitals Vitals: Vital Signs - 24 hr 04/22/18 04/22/18 04/22/18 15:59 17:42 18:36 Temperature 35.6 C L 36.4 C L 36.6 C Heart Rate 56 L 78 86 Respiratory 16 17 17 Rate Blood Pressure 100/73 131/87 H 117/71 O2 Saturation 99 100 100 Oxygen O2 Source [With Activity] Room air O2 Source Room air - EKG (time done) 1 Rhythm: Other (poor baseline but likely NSR) [place]: LAD Intervals: Other (non specific IVCD) QRS: Poor R wave progression Ischemia: Other (coving without true elev anterior leads) - Labs Labs: Laboratory Tests 04/22/18 04/22/18 04/22/18 16:23 16:33 16:33 WBC 10.6 RBC 4.04 L Hgb 13.2 L Hct 37.9 L MCV 93.7 MCH 32.6 H MCHC 34.8 RDW 12.7 Plt Count 202 MPV 8.3 Neut # (Auto) 8.5 H Lymph # (Auto) 1.3 L Ness # (Auto) 0.5 Eos # (Auto) 0.2 Baso # (Auto) 0.1 Absolute Nucleated RBC 0.00 Nucleated RBC % 0.0 Sodium 134 L Potassium 4.4 Chloride 99 L Carbon Dioxide 28 Anion Gap 7.0 BUN 17 Creatinine 1.1 Estimated GFR (MDRD) 64 L Glucose 126 H Lactic Acid Calcium 8.8 Troponin I Urine Color YELLOW Urine Clarity HAZY Urine pH 8.5 H Ur Specific [place] 1.010 Urine Protein 30 H Urine Glucose (UA) NEGATIVE Urine Ketones TRACE Urine Occult Blood NEGATIVE Urine Nitrite POSITIVE H Urine Bilirubin NEGATIVE Urine Urobilinogen 1 (NORMAL) Ur Leukocyte Esterase LARGE H Urine RBC 0-5 Urine WBC 11-25 H Ur Squamous Epith Cells NONE SEEN Urine Crystals 26-50 Triple Phos Urine Bacteria Many H Ur Microscopic Review INDICATED Urine Culture Comments INDICATED 04/22/18 04/22/18 16:33 16:39 WBC RBC Hgb Hct MCV MCH MCHC RDW Plt Count MPV Neut # (Auto) Lymph # (Auto) Ness # (Auto) Eos # (Auto) Baso # (Auto) Absolute Nucleated RBC Nucleated RBC % Sodium Potassium Chloride Carbon Dioxide Anion Gap BUN Creatinine Estimated GFR (MDRD) Glucose Lactic Acid 1.7 Calcium Troponin I < 0.04 Urine Color Urine Clarity Urine pH Ur Specific [place] Urine Protein Urine Glucose (UA) Urine Ketones Urine Occult Blood Urine Nitrite Urine Bilirubin Urine Urobilinogen Ur Leukocyte Esterase Urine RBC Urine WBC Ur Squamous Epith Cells Urine Crystals Urine Bacteria Ur Microscopic Review Urine Culture Comments - Rads (name of study) CTH Radiology: See rad report (no ICH, cortical gyriform hyper attentuation could be corticl laminar necrosis seen in hypoxia hypoglycemia and status epilepticus per rad read - rad rec MRI not available in our ER at this time) PD MEDICAL DECISION MAKING - ED course ED course: family here now pt little better, better color more alert, BP coming up I explained results discussed that seizure could have been due to a variety of causes - primary brain abn, low blood pressure from infection, arrhythmia confirmed with family that pt is DNR limited - they would like to complete a proper POLST which we can help with they would not want surgery for any reason so no need to get MRI to see if there is a tumor causing seizure that cannot be seen on CT would not want CPR defib intubation etc so no need for tele but are OK with IVF and antibiotics given his profound AMS and hypotension with an infection we discussed and family would like to keep him overnight for IVF and ab until more certain he is as safe as possible to go home paged hospitalist at [phone] - about to change shift, night assistant to call night hospitalist called at [address] pt in obs Departure - Departure Disposition: ED Place in Observation Clinical Impression: Seizure Hypotension Qualifiers: Hypotension type: unspecified hypotension type Qualified Code(s): I95.9 - Hypotension, unspecified UTI (urinary tract infection) Qualifiers: Urinary tract infection type: catheter-associated UTI Indwelling urinary catheter type: indwelling urethral catheter Encounter type: initial encounter Qualified Code(s): T83.511A - Infection and inflammatory reaction due to indwelling urethral catheter, initial encounter Condition: Fair
--- NOTE | 2018-04-22 17:01 | XRAY Report ---
Reason: chest pain Procedure Date: 04/22/2018 Accession Number: [id number] / [id number] Procedure: XR - Chest 1 View X-Ray CPT Code: 70876 FULL RESULT: EXAM: CHEST RADIOGRAPHY EXAM DATE: 04/22/2018 04:37 PM. CLINICAL HISTORY: Chest pain. COMPARISON: 05/13/2017. TECHNIQUE: 1 view. FINDINGS: Lungs/Pleura: There are low lung volumes with mild bibasilar atelectasis and central bronchovascular crowding. The lung apices are partially obscured by the patient's chin. Mediastinum: The cardiac silhouette is largely obscured. The patient is rotated leftward, accentuating the aortic silhouette. Other: None. IMPRESSION: Low lung volumes otherwise grossly clear. RADIA
[2018-04-22] MEDS ORDERED: cefTRIAXone 1 GM in SODIUM CHLORIDE 0.9% MINIBAG 100 ML IV STA (17:31)
--- NOTE | 2018-04-22 18:06 | CT Report ---
Reason: new onset seizure Procedure Date: 04/22/2018 Accession Number: [id number] / [id number] Procedure: CT - Head W/O CPT Code: FULL RESULT: EXAM: CT HEAD EXAM DATE: 04/22/2018 05:15 PM. CLINICAL HISTORY: New onset seizure. COMPARISON: None available. TECHNIQUE: Multiaxial CT images were obtained from the foramen magnum to the vertex. Reformats: Sagittal and coronal. IV contrast: None. In accordance with CT protocol optimization, one or more of the following dose reduction techniques were utilized for this exam: automated exposure control, adjustment of mA and/or KV based on patient size, or use of iterative reconstructive technique. FINDINGS: Parenchyma: There is gyriform hyperattenuation in the right and left occipital cortices, series 3 images 11 through 18. No intraparenchymal hemorrhage. No evidence of mass, midline shift, or CT findings of acute infarction. Nascimento-white differentiation is distinct. Diffuse chronic microangiopathic white matter changes are evident. Extraaxial Spaces: Normal for age. No subdural or epidural collections identified. Ventricles: The ventricles and cortical sulci are enlarged, consistent with age-related tissue loss. Sinuses and orbits: Imaged paranasal sinuses, orbits, and mastoids show no significant abnormality. Bones: No evidence of fracture or calvarial defect. Other: None. IMPRESSION: 1. Gyriform hyperattenuation in the right and left occipital cortices. 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 This is a finding that can be seen in etiologies such as hypoxia, hypoglycemia, or status epilepticus. MRI might be considered for further evaluation. 2. Generalized age-related cortical atrophic changes. RADIA
[2018-04-22] MEDS ORDERED: ONDANSETRON 4 MG/2 ML VIAL IVP PRN (20:19)
[2018-04-22] MEDS ORDERED: CEFEPIME 2 GM in SODIUM CHLORIDE 0.9% MINIBAG 100 ML IV STA (20:24)
[2018-04-22] MEDS ORDERED: LIDOCAINE 2% URO-JET 5 ML SYRINGE UR STA (20:59)
--- NOTE | 2018-04-22 21:19 | HISTORY & PHYSICAL EXAMINATION ---
Chief Complaint - Chief Complaint Chief Complaint: Weakness, possible seziure History of Present Illness - Admitted From Admitted From:: ED - History Obtained From Records Reviewed: ED, previous hospital visits History obtained from: Pt's family and ED notes Exam Limitations: Pt has advanced dementia - History of Present Illness HPI Comment/Other: Patient is an 83-year-old male who is pleasantly confused and has a known past medical history of advanced dementia, prostate cancer in remission, persistent indwelling Kwon catheter due to incontinence, who presents to the emergency room after the family witnessed a sudden change in his mental status and what they describe as a possible apneic episode and a possible seizure with convulsive jerking movements of the upper extremities with a sudden onset while at home.Patient was in his usual state of health in his chair when he suddenly began to slouch over, looks like he stopped breathing for several seconds, became pale, and had convulsive movements of the upper extremities. Family took his blood pressure and noted that it was low. EMS was called and the patient slowly began to improve and is now closer to his baseline mental status with advanced dementia. In the emergency room, the workup was done for stroke versus TIA and a head CT was unremarkable, chest x-ray was unremarkable, EKG showed nonspecific changes, CBC did not show any significant WBC count, and a lactic acid level was normal. Urine however did suggest possible UTI versus contamination given the chronic indwelling Kwon catheter. He also became transiently hypotensive with blood pressures in the 90s over 60s and has responded to a single dose of IV ceftriaxone and IV fluids in the emergency room. Patient is escorted by his and his daughter both of whom appear to be very reliable historians and appeared to be very well trained in the care of his Kwon and they also have assistance with a home health aide and home health nurses. They have not noticed any fevers, chills, hematuria, foul-smelling odor, or other symptoms lately. Patient has not been complaining of any specific pain or having other changes suggestive of an ongoing infection and generally speaking has been in his usual state of health until earlier today. Because of the possible UTI given his chronic comorbidities along with hypotension, it was thought best to admit the patient for observation, start him on some IV fluids and IV antibiotics and pending clinical course possible discharge when he is back to baseline and sent home with oral antibiotics. History - Past Medical History Cardiovascular: reports: Hypertension, High cholesterol, Coronary artery disease, Other (Patient is status post single stent in 1999) Respiratory: reports: None Neuro: reports: Dementia, Other (Spinal stenosis) GI: reports: GERD : reports: Incontinence, Indwelling catheter, Nocturia, Frequency, Other (History of prostate cancer with prostatectomy in 2006). denies: Retention Psych: reports: None Musculoskeletal: reports: Osteoarthritis, Other Derm: reports: None MRSA Hx?: No - Past Surgical History General: reports: Colonoscopy Ortho: reports: Knee replacement Cardiovascular: reports: Coronary stent HEENT: reports: Tonsil/Adenoidectomy - Family & Social History Family History Comment/Other: Unable to obtain family history given patient's statusOf confusion Living arrangement: At home Living Situation: With spouse/s.o., With family Social History Notes: Patient is taken care of quite well by family and the family does wish to keep him at home as long as possible but they are amenable to placement if necessary. He currently has home health aides and home health nurses. - Substance History Use: Uses substance without health or social issues: NONE Abuse: Recurrent use of substance despite neg consequences: NONE - POLST Patient has POLST: No POLST Status: DNR Meds/Allgy - Home Medications Home Medications: Ambulatory Orders Medication Instructions Recorded Confirmed Acetaminophen [Tylenol] 650 mg PO Q4HR PRN tablet 05/16/17 Losartan/Hydrochlorothiazide 1 tab PO DAILY #0 05/16/17 05/14/17 [Losartan-Hctz 50-12.5 mg Tab] Nystatin Cream [Mycostatin Cream] 1 applic TOP BID tube 05/16/17 Nitrofurantoin Monohyd/M-Cryst 100 mg PO BID #20 capsule 09/05/17 [Macrobid 100 mg Capsule] - Allergies Allergies/Adverse Reactions: Allergies Allergy/AdvReac Type Severity Reaction Status Date / Time No Known Drug Allergies Allergy Verified 04/22/18 16:02 Review of Systems - Constitutional Constitutional: reports: Fatigue, Malaise, Weakness. denies: Fever, Chills - Cardiovascular Cariovascular: denies: Irregular heart rate, Palpitations, Chest pain, Syncope - Respiratory Respiratory: denies: Cough, Wheezing, SOB at rest - Gastrointestinal Gastrointestinal: denies: Abdominal pain - Genitourinary Genitourinary: reports: Frequency, Incontinence - Neurological Neurological: reports: General weakness, Memory problems, Pre-existing deficit. denies: Focal weakness, Headache, Dizziness, Numbness, Slurred speech Prior Level of Functionality: Previously patient is able to ambulate independently at home. Exam - Vital Signs Vital Signs: Vital Signs x48h Temp Pulse Resp BP Pulse Ox 04/22/18 20:49 87 13 121/75 100 04/22/18 20:04 86 16 116/76 100 04/22/18 18:36 36.6 C 86 17 117/71 100 04/22/18 17:42 36.4 C L 78 17 131/87 H 100 04/22/18 15:59 35.6 C L 56 L 16 100/73 99 - Physical Exam General Appearance: positive: No acute distress Eyes Bilateral: positive: Normal inspection ENT: positive: ENT inspection nml Neck: positive: Nml inspection Respiratory: positive: Chest non-tender, No respiratory distress, Breath sounds nml Cardiovascular: positive: Regular rate & rhythm, No murmur, No gallop Peripheral Pulses: positive: 2+ Abdomen: positive: Non-tender, No organomegaly, Nml bowel sounds, No distention Skin: positive: Other (He has some minor skin abrasion on the right knee which is something that is chronic secondary to the Kwon catheter tubing rubbing against his skin) Extremities: positive: Nml appearance, No pedal edema Neurologic/Psychiatric: positive: Motor nml, Sensation nml, Mood/affect nml, Other (Pleasantly disoriented). negative: Weakness, Sensory loss, Facial droop, Slurred/abnml speech, Depressed mood/affect Conclusion/Plan - Problem List (1) Hypotension Conclusion/Plan: Possibly related to infection however blood pressure has responded to IV fluids in the emergency department. We will continue IV fluids overnight, and initiate treatment with antibiotics. His lactic acid is normal and his white blood cell count is normal and he has normal heart rate and temperature so I do not think he meets criteria for sepsis but given the findings this would meet criteria for a complicated UTI and warrants hospitalization overnight. Pending clinical course could potentially discharge as early as tomorrow. Qualifiers: Hypotension type: unspecified hypotension type Qualified Code(s): I95.9 - Hypotension, unspecified (2) Seizure Conclusion/Plan: Symptoms described could potentially represent seizure activity however given his advanced dementia would not necessarily benefit from seizure medications at this point. He is relatively limited care and to DNR/DNI. We will hold off on further workup and can be decided outpatient after discharge. (3) UTI (urinary tract infection) Conclusion/Plan: Urinalysis is highly suggestive of UTI and given his chronic indwelling urinary catheter this would not be surprising. He has however had a history of colonization. I have reviewed the chart and found to previous urine infections with Morganella x2 and Klebsiella x1. Given his sensitivity it looks like cefepime would be an appropriate antibiotic selection for now because it was effective on all 3 cultures. We will start with this empirically and pending clinical improvement and cultures, can transition to orals pending urine culture. Qualifiers: Urinary tract infection type: catheter-associated UTI Indwelling urinary catheter type: indwelling urethral catheter Encounter type: initial encounter Qualified Code(s): T83.511A - Infection and inflammatory reaction due to indwelling urethral catheter, initial encounter; N39.0 - Urinary tract infe ction, site not specified - Lab Results Fish Bones: 04/22/18 16:33 04/22/18 16:33 - Diagnostic Imaging Results Diagnostic Imaging Results: positive: Final report reviewed, Read independently - EKG Results EKG Interpreted Independently: Yes EKG Comparison: Other (Nonspecific changes)
[2018-04-22] MEDS: LACTATED RINGERS 1,000 ML IV SCH (23:00)
[2018-04-22] MEDS: SODIUM CHLORIDE FLUSH 0.9% 10 ML SYRINGE IVP PRN (23:00)
[2018-04-22] MEDS: FAMOTIDINE 20 MG TABLET PO SCH (23:10)
[2018-04-22] MEDS: ACETAMINOPHEN 325 MG TABLET PO PRN (23:10)
[2018-04-23] MEDS: NYSTATIN CREAM 15 GM TUBE TOP SCH ×3 (02:24→20:39)
[2018-04-23] MEDS: IBUPROFEN 400 MG TABLET PO PRN (02:49)
[2018-04-23] MEDS: SODIUM CHLORIDE FLUSH 0.9% 10 ML SYRINGE IVP SCH ×3 (05:04→16:01)
[2018-04-23 05:30] LABS: HGB - HEMOGLOBIN 11.9 g/dL (14.0-18.0); MEAN CORPUSCULAR HEMOGLOBIN 32.8 pg (27.0-31.0); MEAN CORPUSCULAR HGB CONC 35.1 g/dL (32.0-36.0); MEAN CORPUSCULAR VOLUME 93.6 fL (80.0-94.0); MEAN PLATELET VOLUME 8.1 fL (7.4-11.4); RED BLOOD COUNT 3.62 10^6/uL (4.70-6.10); RED CELL DISTRIBUTION WIDTH 12.5 % (12.0-15.0); WHITE BLOOD COUNT 9.7 x10^3/uL (4.8-10.8)
[2018-04-23 05:39] LABS: CALCIUM 8.5 mg/dL (8.5-10.3); CREATININE 0.8 mg/dL (0.6-1.2)
[2018-04-23] MEDS ORDERED: TEMAZEPAM 7.5 MG CAPSULE PO PRN (07:04)
[2018-04-23] MEDS: FAMOTIDINE 20 MG TABLET PO SCH ×2 (09:38→20:40)
[2018-04-23] MEDS: ACETAMINOPHEN 325 MG TABLET PO PRN (09:38)
[2018-04-23] MEDS: SODIUM CHLORIDE FLUSH 0.9% 10 ML SYRINGE IVP PRN (09:39)
[2018-04-23] MEDS: POLYETHYLENE GLYCOL 3350 17 GM PACKET PO SCH (09:39)
[2018-04-23] MEDS: LACTATED RINGERS 1,000 ML IV SCH ×3 (12:03→23:34)
--- NOTE | 2018-04-23 19:08 | PROVIDER PROGRESS NOTE ---
Subjective - Prog Note Date Prog Note Date: 04/23/18 Prog Note Time: 10:00 - Subjective Pt reports feeling: Improved Subjective: Quincy complains of headaches and body aches. He is agreeable to another night in the hospital as he is profoundly weak from his baseline. His , Britney is at the bedside for this exam. The patient denies any new symptoms today and is not short of breath. Britney brought in familiar objects from home for re-orientation purposes. Objective - Vital Signs/Intake & Output Reviewed Vital Signs: Yes Vital Signs: Vital Signs x48h Temp Pulse Pulse Pulse Resp BP BP 04/23/18 16:00 37.0 C 55 L 16 107/60 04/23/18 13:00 59 L 54 L 112/67 BP Pulse Ox Pulse Ox 04/23/18 16:00 98 04/23/18 13:00 103/56 L 98 Intake & Output: Intake & Output 04/20/18 04/21/18 04/22/18 04/23/18 23:59 23:59 23:59 23:59 Intake Total 200 2930 Output Total 200 385 Balance 0 2545 - Objective General Appearance: positive: Alert, Moderate distress Eyes Bilateral: positive: PERRL Eyes: OU Conjunctivae pale ENT: positive: Pharyngeal erythema, Dry mucous membranes Neck: positive: Thyroid nml, No JVD, Lymphadenopathy (R), Lymphadenopathy (L) Respiratory: positive: Chest non-tender, No respiratory distress, Rhonchi Cardiovascular: positive: No gallop, Irregularly irregular, Systolic murmur, Decreased pulse(s) Peripheral Pulses: 1+ Radial (R), 1+ Radial (L) Abdomen: positive: Nml bowel sounds, Tenderness Back: positive: Nml inspection Skin: positive: No rash, Warm, Dry, Pallor Extremities: positive: Non-tender, Pedal edema, Joint swelling Neurologic/Psychiatric: positive: Disoriented to place, Disoriented to time, Weakness, Sensory loss, Slurred/abnml speech, Depressed mood/affect, Other (baseline advanced dementia) Reflexes: Bicep (R): 2+, Bicep (L): 2+ - Lab Results Fish Bones: 04/24/18 05:33 04/24/18 05:33 Other Labs: Lab Results x24hrs 04/23/18 04/23/18 04/22/18 Range/Units 05:22 05:22 16:33 WBC 9.7 (4.8-10.8) x10^3/uL RBC 3.62 L (4.70-6.10) 10^6/uL Hgb 11.9 L (14.0-18.0) g/dL Hct 33.9 L (42.0-52.0) % MCV 93.6 (80.0-94.0) fL MCH 32.8 H (27.0-31.0) pg MCHC 35.1 (32.0-36.0) g/dL RDW 12.5 (12.0-15.0) % Plt Count 181 (130-450) 10^3/uL MPV 8.1 (7.4-11.4) fL Sodium 135 (135-145) mmol/L Potassium 3.9 (3.5-5.0) mmol/L Chloride 104 (101-111) mmol/L Carbon Dioxide 24 (21-32) mmol/L Anion Gap 7.0 (6-13) BUN 18 (6-20) mg/dL Creatinine 0.8 (0.6-1.2) mg/dL Estimated GFR (MDRD) 93 (>89) Glucose 107 H (70-100) mg/dL Calcium 8.5 (8.5-10.3) mg/dL Magnesium 2.3 (1.7-2.8) mg/dL ABX Reporting Has patient been on IV antibiotics over the past 48 hours?: Yes Sepsis Event Note (H) - Evaluation Current Stage of Sepsis: Sepsis Possible source of Sepsis: positive: Genitourinary - Sepsis Criteria Sepsis Criteria: Suspected or Documented, Recorded Temperature greater than 38.3C or Less than 36C, Recorded Heart Rate greater than 90 bpm, SIDE SPLITTER: altered consciousness (unrelated to primary neuro pathology), SBP drop more than 40mHg Assessment/Plan - Problem List (1) Sepsis Impression: The patient has increased confusion, weakness, hypotension, hypothermia, and an obvious source at this point is his urinary tract as he has a chronic indwelling sneed that has been requiring weekly changes due to increased mucous/sediment formation. Plan: Continue daily labs, PT prior to discharge and length of stay may be up to 3 days. (2) Pyelonephritis Impression: The patient's , Cherie reports that prior to admission the patient's sneed cath would require monthly changes, but for the past 3 weeks, it has been changed at least weekly for mucous and sediment that would clog the tubing. The patient has been having more back pain and on exam, is tender with palpation. He has also had a more difficult time with following sequence [id number] common things such as standing, sitting, etc. His WBC count was 10.6, was found to have a temp of 35.6, and mildly hypotensive with a blood pressure of 100/53. He was given IV Cefepime, now changed to Zosyn. A urine sample showed several bacteria, + UTI with the final culture still pending. Plan: Await final culture results, and monitor labs/ vital signs. (3) ERIBERTO (acute kidney injury) Impression: The patient was suspected to be dehydrated and had an elevated creatinine of 1.1, which is up from his baseline of 0.8. Plan: Continue LR IV fluids, and treat infection. (4) Weakness generalized Impression: The patient's , Cherie explained how her 's weakness has become much worse which seemed to correlate to his increased need for sneed changes due to increased sediment. Plan: Order PT, and evaluate for higher level of care. (5) Alzheimer's dementia Impression: The patient has advanced dementia, but is thought to be very pleasant at home when he is in his usual state of health. His mental status is considerably worse today given his acute infection. Plan: Fall precautions and consider a Palliative care consult prior to discharge. Qualifiers: Alzheimer's disease onset: unspecified onset (6) Chronic indwelling Sneed catheter Impression: The patient has a chronic sneed for both urinary retention and his advanced dementia. His , Cherie states that he was making messes all over the house w ith his urinary dribbling, so the choice was made to maintain a chronic sneed. Plan: Continue to await final urine results, treat acute infection.
[2018-04-24] MEDS: ACETAMINOPHEN 325 MG TABLET PO PRN ×2 (00:09→19:13)
[2018-04-24] MEDS: SODIUM CHLORIDE FLUSH 0.9% 10 ML SYRINGE IVP SCH ×3 (00:15→17:10)
[2018-04-24 05:45] LABS: HGB - HEMOGLOBIN 11.5 g/dL (14.0-18.0); MEAN CORPUSCULAR HEMOGLOBIN 32.5 pg (27.0-31.0); MEAN CORPUSCULAR HGB CONC 34.5 g/dL (32.0-36.0); MEAN CORPUSCULAR VOLUME 94.2 fL (80.0-94.0); MEAN PLATELET VOLUME 8.4 fL (7.4-11.4); RED BLOOD COUNT 3.54 10^6/uL (4.70-6.10); RED CELL DISTRIBUTION WIDTH 12.4 % (12.0-15.0)
[2018-04-24 05:54] LABS: CALCIUM 8.2 mg/dL (8.5-10.3); CREATININE 0.8 mg/dL (0.6-1.2)
[2018-04-24] MEDS: FAMOTIDINE 20 MG TABLET PO SCH ×2 (08:45→20:49)
[2018-04-24] MEDS: NYSTATIN CREAM 15 GM TUBE TOP SCH ×2 (08:45→19:09)
[2018-04-24] MEDS: DOCUSATE SODIUM 250 MG CAPSULE PO SCH (08:45)
[2018-04-24] MEDS: SENNA 8.6 MG TABLET PO SCH (08:46)
[2018-04-24] MEDS: POLYETHYLENE GLYCOL 3350 17 GM PACKET PO SCH (08:46)
[2018-04-24] MEDS: LACTATED RINGERS 1,000 ML IV SCH (10:00)
[2018-04-24] MEDS: PIPERACILLIN/TAZOBACTAM 3.375 GM in SODIUM CHLORIDE 0.9% MINIBAG 100 ML IV SCH (17:05)
--- NOTE | 2018-04-24 17:21 | PROVIDER PROGRESS NOTE ---
Subjective - Prog Note Date Prog Note Date: 04/24/18 Prog Note Time: 17:21 - Subjective Pt reports feeling: Improved Subjective: Quincy has no complaints and is keeping occupied with reading a prayer book that his brought him from home. Cherie requests that a new POLST form be filled out. She states that her seems to be less ill than when he first came in, but continues to have worsening confusion. Current Medications - Current Medications Current Medications: Active Medications Acetaminophen (Tylenol) 650 mg PO Q4HR PRN PRN Reason: Pain 1 to 4 Last Admin: 04/24/18 19:13 Dose: 650 mg Docusate Sodium (Colace 250mg Capsule) 250 - 500 mg PO DAILY [facility] [place] Last Admin: 04/24/18 08:45 Dose: 250 mg Famotidine (Pepcid) 20 mg PO BID [facility] [place] Last Admin: 04/24/18 20:49 Dose: 20 mg Piperacillin Sod/Tazobactam (Sod 3.375 gm/ Sodium Chloride) 100 mls @ 25 mls/hr IV Q8H [facility] [place] Last Admin: 04/24/18 17:05 Dose: 25 mls/hr Sodium Chloride (Normal Saline 0.9%) 1,000 mls @ 83.333 mls/hr IV .Q12H [facility] [place] Last Admin: 04/24/18 18:21 Dose: 83.333 mls/hr Ibuprofen (Motrin) 400 mg PO Q4HR PRN PRN Reason: Pain 5 to 7 Last Admin: 04/23/18 02:49 Dose: 400 mg Nystatin (Mycostatin Cream) 1 applic TOP BID [facility] [place] Stop: 05/13/18 09:01 Last Admin: 04/24/18 19:09 Dose: 1 applic Ondansetron HCl (Zofran Inj) 4 mg IVP Q6HR PRN PRN Reason: Nausea / Vomiting Polyethylene Glycol (Miralax) 17 gm PO DAILY [facility] [place] Last Admin: 04/24/18 08:46 Dose: 17 gm Saccharomyces Boulardii (Florastor) 500 mg PO BIDWM [facility] [place] Last Admin: 04/24/18 17:40 Dose: 500 mg Senna (Senokot) 8.6 - 17.2 mg PO DAILY [facility] [place] Last Admin: 04/24/18 08:46 Dose: 8.6 mg Sodium Chloride (Normal Saline Flush 0.9%) 10 ml IVP PRN PRN PRN Reason: NEEDED PER PROVIDER ORDERS Last Admin: 04/23/18 09:39 Dose: 10 ml Sodium Chloride (Normal Saline Flush 0.9%) 10 ml IVP 0100,0900,1700 [facility] Last Admin: 04/24/18 17:10 Dose: 10 ml Temazepam (Restoril) 7.5 mg PO QPM PRN PRN Reason: Insomnia Cranberry 2 cap PO DAILY 04/23/18 L. Acidophilus/L. Rhamnosus [Probiotic 15 Billion Cell Cap] 1 each PO DAILY 04/23/18 Losartan Potassium 50 mg PO DAILY 04/23/18 Multivitamin [Multivitamins] 2 each PO DAILY 04/23/18 Nystatin 1 applic TOP PRN PRN 04/23/18 Objective - Vital Signs/Intake & Output Reviewed Vital Signs: Yes Vital Signs: Vital Signs x48h Temp Pulse Resp BP Pulse Ox 04/24/18 16:00 36.5 C 61 18 137/82 H 100 Intake & Output: Intake & Output 04/21/18 04/22/18 04/23/18 04/24/18 23:59 23:59 23:59 23:59 Intake Total 200 3930 2661.667 Output Total 200 1385 2550 Balance 0 2545 111.667 - Objective General Appearance: positive: Alert, Mild distress, Anxious Eyes Bilateral: positive: PERRL Eyes: OU Conjunctivae pale ENT: positive: Pharynx nml, No signs of dehydration Neck: positive: Thyroid nml, No JVD, Trachea midline Respiratory: positive: Chest non-tender, No respiratory distress, Other (slight crackles in left lower base.) Cardiovascular: positive: Regular rate & rhythm, No gallop, Systolic murmur, Decreased pulse(s) Peripheral Pulses: 1+ Radial (R), 1+ Radial (L) Abdomen: positive: Non-tender, Nml bowel sounds Back: positive: Nml inspection Skin: positive: No rash, Warm, Dry, Pallor Extremities: positive: Non-tender, Full ROM, Nml appearance, No pedal edema Neurologic/Psychiatric: positive: Disoriented to person, Disoriented to place, Disoriented to time, Weakness, Sensory loss, Slurred/abnml speech, Depressed mood/affect, Other (profound advanced dementia) Reflexes: Bicep (R): 3+, Bicep (L): 3+ - Lab Results Fish Bones: 04/25/18 05:18 04/25/18 05:18 Other Labs: Lab Results x24hrs 04/24/18 04/24/18 04/24/18 Range/Units 05:33 05:33 05:33 WBC 8.0 (4.8-10.8) x10^3/uL RBC 3.54 L (4.70-6.10) 10^6/uL Hgb 11.5 L (14.0-18.0) g/dL Hct 33.3 L (42.0-52.0) % MCV 94.2 H (80.0-94.0) fL MCH 32.5 H (27.0-31.0) pg MCHC 34.5 (32.0-36.0) g/dL RDW 12.4 (12.0-15.0) % Plt Count 165 (130-450) 10^3/uL MPV 8.4 (7.4-11.4) fL Sodium 134 L (135-145) mmol/L Potassium 4.0 (3.5-5.0) mmol/L Chloride 105 (101-111) mmol/L Carbon Dioxide 24 (21-32) mmol/L Anion Gap 5.0 L (6-13) BUN 19 (6-20) mg/dL Creatinine 0.8 (0.6-1.2) mg/dL Estimated GFR (MDRD) 93 (>89) Glucose 89 (70-100) mg/dL Lactic Acid 1.1 (0.5-2.2) mmol/L Calcium 8.2 L (8.5-10.3) mg/dL ABX Reporting Has patient been on IV antibiotics over the past 48 hours?: Yes Sepsis Event Note (H) - Evaluation Current Stage of Sepsis: Sepsis Possible source of Sepsis: positive: Genitourinary - Sepsis Criteria Sepsis Criteria: Recorded Temperature greater than 38.3C or Less than 36C, Recorded Heart Rate greater than 90 bpm, [employer]: altered consciousness (unrelated to primary neuro pathology) Assessment/Plan - Problem List (1) Pyelonephritis Impression: The patient's , Cherie reports that prior to admission the patient's sneed cath would require monthly changes, but for the past 3 weeks, it has been change d at least weekly for mucous and sediment that would clog the tubing. The patient has been having more back pain and on exam, is tender with palpation. He has also had a more difficult time with following sequence [id number] common things such as standing, sitting, etc. His WBC count was 10.6, was found to have a temp of 35.6, and mildly hypotensive with a blood pressure of 100/53. He was given IV Cefepime, now changed to Zosyn. *A urine sample showed several bacteria, + UTI with the final culture that grew out Proteus Mirabilis, which has several sensitivities. Plan: Continue IV Zosyn, monitor labs/ vital signs. (2) Sepsis Impression: The patient has increased confusion, weakness, hypotension, hypothermia, and an obvious source at this point is his urinary tract, which is growing out proteus mirabilis, as he has a chronic indwelling sneed that has been requiring weekly changes due to increased mucous/sediment formation. Plan: Continue daily labs, PT prior to discharge and length of stay may be up to 3 days. (3) ERIBERTO (acute kidney injury) Impression: The patient was suspected to be dehydrated and had an elevated creatinine of 1.1, which is up from his baseline of 0.8. Today this appears resolved with a stable creatinine of 0.8 and is getting IV Zosyn. Plan: Continue LR IV fluids, and treat infection. (4) Weakness generalized Impression: The patient's , Cherie explained how her 's weakness has become much worse which seemed to correlate to his increased need for sneed changes due to increased sediment. Palliative consult has been made and tentative plans to come tomorrow. The patient is very confused and weak today. Plan: Daily PT, and evaluate for higher level of care. (5) Alzheimer's dementia Impression: The patient has advanced dementia, but is thought to be very pleasant at home when he is in his usual state of health. His mental status is not improved today, given his acute infection. Plan: Fall precautions and consider a Palliative care consult prior to discharge. Qualifiers: Alzheimer's disease onset: unspecified onset (6) Chronic indwelling Sneed catheter Impression: The patient has a chronic sneed for both urinary retention and his advanced de mentia. His , Cherie states that he was making messes all over the house with his urinary dribbling, so the choice was made to maintain a chronic sneed. His urine today appears clear yellow with very little sediment. Plan: Continue to await final urine results, treat acute infection.
[2018-04-24] MEDS: SACCHAROMYCES BOULARDII 250 MG CAPSULE PO SCH (17:40)
[2018-04-24] MEDS: SODIUM CHLORIDE 0.9% 1,000 ML IV SCH (18:21)
[2018-04-25] MEDS: PIPERACILLIN/TAZOBACTAM 3.375 GM in SODIUM CHLORIDE 0.9% MINIBAG 100 ML IV SCH ×3 (00:14→16:05)
[2018-04-25] MEDS: SODIUM CHLORIDE FLUSH 0.9% 10 ML SYRINGE IVP SCH ×4 (00:16→23:51)
[2018-04-25 05:52] LABS: HGB - HEMOGLOBIN 11.8 g/dL (14.0-18.0); MEAN CORPUSCULAR HEMOGLOBIN 32.7 pg (27.0-31.0); MEAN CORPUSCULAR HGB CONC 34.9 g/dL (32.0-36.0); MEAN CORPUSCULAR VOLUME 93.6 fL (80.0-94.0); MEAN PLATELET VOLUME 8.4 fL (7.4-11.4); RED BLOOD COUNT 3.62 10^6/uL (4.70-6.10); RED CELL DISTRIBUTION WIDTH 12.6 % (12.0-15.0); WHITE BLOOD COUNT 7.2 x10^3/uL (4.8-10.8)
[2018-04-25 06:01] LABS: CALCIUM 8.2 mg/dL (8.5-10.3); CREATININE 0.9 mg/dL (0.6-1.2)
[2018-04-25] MEDS: SACCHAROMYCES BOULARDII 250 MG CAPSULE PO SCH ×2 (08:58→16:04)
[2018-04-25] MEDS: DOCUSATE SODIUM 250 MG CAPSULE PO SCH (09:00)
[2018-04-25] MEDS: FAMOTIDINE 20 MG TABLET PO SCH ×2 (09:01→20:02)
[2018-04-25] MEDS: POLYETHYLENE GLYCOL 3350 17 GM PACKET PO SCH (09:01)
[2018-04-25] MEDS: SENNA 8.6 MG TABLET PO SCH (09:01)
[2018-04-25] MEDS: NYSTATIN CREAM 15 GM TUBE TOP SCH ×2 (09:02→20:02)
--- NOTE | 2018-04-25 10:34 | ADVANCE CARE PLANNING NOTE ---
Advance Care Planning - Date/Time Date: 04/24/18 Time: 10:00 - Purpose of encounter Text: Fill out POLST, discuss goals of care. - Parties in attendance Parties in attendance: The patient-Quincy Harper, his -Cherie Harper, and myself-ANTONIO Gonzales - Decisional capacity Decisional capacity of: The patient has no decisional capacity, and his Cherie is his activated POA with documentation to support this. She indeed, does have his best interest in mind and has a very kind nature. - Subjective/Patient's story Subjective/Patient's story: The patient's , Cherie is speaking for him as his profound dementia makes him not of capacity. She states that her really started to more difficulty with strength and stamina after his 2 back surgeries in November of 2016 & in June of 2017. She states that after a stay at Home place, she ended up filing a formal complaint for neglectful care as they did not care for him and especially did not pay attention to his necessary sneed care. This led to her being very firm about her staying at home until the end of his life at all costs. Cherie claims that her main support is her daughter and son-in-law, as well as caregiver support 3 half-days per week, this helps her maintain balance in her life, she can leave the house, run errands, take a break. So far it is w orking out well and their goal is that he remain in his home through end of life. They want to avoid future hospitalizations and finally allow a natural at home surrounded by loved ones. She has signed a POLST form today concluding DNR, comfort care measures only. - Objective/Medical story Objective/Medical Story: Patient is an 83-year-old male who is pleasantly confused and has a known past medical history of advanced dementia, prostate cancer in remission, persistent indwelling Sneed catheter due to incontinence, who presents to the emergency r oom after the family witnessed a sudden change in his mental status and what they describe as a possible apneic episode and a possible seizure with convulsive jerking movements of the upper extremities with a sudden onset while at home.Patient was in his usual state of health in his chair when he suddenly began to slouch over, looks like he stopped breathing for several seconds, became pale, and had convulsive movements of the upper extremities. Family took his blood pressure and noted that it was low. EMS was called and the patient slowly began to improve and is now closer to his baseline mental status with advanced dementia. In the emergency room, the workup was done for stroke versus TIA and a head CT was unremarkable, chest x-ray was unremarkable, EKG showed nonspecific changes, CBC did not show any significant WBC count, and a lactic acid level was normal. Urine however did suggest possible UTI versus contamination given the chronic indwelling Sneed catheter. He also became transiently hypotensive with blood pressures in the 90s over 60s and has responded to a single dose of IV ceftriaxone and IV fluids in the emergency room. Patient is escorted by his and his daughter both of whom appear to be very reliable historians and appeared to be very well trained in the care of his Sneed and they also have assistance with a home health aide and home health nurses. They have not noticed any fevers, chills, hematuria, foul-smelling odor, or other symptoms lately. Patient has not been complaining of any specific pain or having other changes suggestive of an ongoing infection and generally speaking has been in his usual state of health until earlier today. Because of the possible UTI given his chronic comorbidities along with hypotension, it was thought best to admit the patient for observation, start him on some IV fluids and IV antibiotics and pending clinical course possible discharge when he is back to baseline and sent home with oral antibiotics. - Goals of Care Goals of care determinations: If should occur from this illness, we will not attempt resuscitation. If the patient falls and sustains injury, his may change to comfort cares only. - Plan Plan: Treat this acute illness and return home verses custodial for a short rehab stay if he is too weak to ambulate, but this may be out of the question, depending on Cherie's wishes. - Code Status Code Status: Do Not Attempt Resuscitation - Time Spent on Advance Care Planning Time spent on advance care plannin
[2018-04-25] MEDS ORDERED: SODIUM CHLORIDE FLUSH 0.9% 10 ML SYRINGE ONE (11:02)
[2018-04-25] MEDS: ACETAMINOPHEN 325 MG TABLET PO PRN (11:55)
[2018-04-25] MEDS ORDERED: WHEAT DEXTRIN POWDER PACKET PO PRN (13:29)
[2018-04-25] MEDS ORDERED: MAGNESIUM HYDROXIDE 2,400 MG/30 ML UDC PO SCH (13:33)
[2018-04-25] MEDS: IBUPROFEN 400 MG TABLET PO PRN (14:20)
[2018-04-25] MEDS: SODIUM CHLORIDE 0.9% 1,000 ML IV SCH ×2 (15:38→21:50)
--- NOTE | 2018-04-25 16:14 | PROVIDER PROGRESS NOTE ---
Subjective - Prog Note Date Prog Note Date: 04/25/18 - Subjective Pt reports feeling: Improved Subjective: pt is with hx of advanced dementia as her baseline. but pt is still weakness, need two persons assist. Pt's request not be d/c to any SNF or nurse facility at this time. she state pt had caregiver and home nurse, with her help, they can take care of pt.Pt will continue PT/OT today, plan d/c home tomorrow. Current Medications - Current Medications Current Medications: Active Medications Acetaminophen (Tylenol) 650 mg PO Q4HR PRN PRN Reason: Pain 1 to 4 Last Admin: 04/25/18 11:55 Dose: 650 mg Docusate Sodium (Colace 250mg Capsule) 250 - 500 mg PO DAILY [facility] Last Admin: 04/25/18 09:00 Dose: 500 mg Famotidine (Pepcid) 20 mg PO BID [facility] Last Admin: 04/25/18 09:01 Dose: 20 mg Piperacillin Sod/Tazobactam (Sod 3.375 gm/ Sodium Chloride) 100 mls @ 25 mls/hr IV Q8H [facility] Last Admin: 04/25/18 16:05 Dose: 25 mls/hr Sodium Chloride (Normal Saline 0.9%) 1,000 mls @ 83.333 mls/hr IV .Q12H [facility] Last Admin: 04/25/18 15:38 Dose: Not Given Ibuprofen (Motrin) 400 mg PO Q4HR PRN PRN Reason: Pain 5 to 7 Last Admin: 04/25/18 14:20 Dose: 400 mg Nystatin (Mycostatin Cream) 1 applic TOP BID [facility] Stop: 05/13/18 09:01 Last Admin: 04/25/18 09:02 Dose: 1 applic Ondansetron HCl (Zofran Inj) 4 mg IVP Q6HR PRN PRN Reason: Nausea / Vomiting Polyethylene Glycol (Miralax) 17 gm PO DAILY [facility] Last Admin: 04/25/18 09:01 Dose: 17 gm Saccharomyces Boulardii (Florastor) 500 mg PO BIDWM [facility] Last Admin: 04/25/18 16:04 Dose: 500 mg Senna (Senokot) 8.6 - 17.2 mg PO DAILY [facility] Last Admin: 04/25/18 09:01 Dose: 17.2 mg Sodium Chloride (Normal Saline Flush 0.9%) 10 ml IVP PRN PRN PRN Reason: NEEDED PER PROVIDER ORDERS Last Admin: 04/23/18 09:39 Dose: 10 ml Sodium Chloride (Normal Saline Flush 0.9%) 10 ml IVP 0100,0900,1700 [facility] Last Admin: 04/25/18 16:06 Dose: Not Given Temazepam (Restoril) 7.5 mg PO QPM PRN PRN Reason: Insomnia Wheat Dextrin (Benefiber) 1 packet PO DAILY PRN PRN Reason: Constipation Last Admin: 04/25/18 14:20 Dose: 1 packet Cranberry 2 cap PO DAILY 04/23/18 L. Acidophilus/L. Rhamnosus [Probiotic 15 Billion Cell Cap] 1 each PO DAILY 04/23/18 Losartan Potassium 50 mg PO DAILY 04/23/18 Multivitamin [Multivitamins] 2 each PO DAILY 04/23/18 Nystatin 1 applic TOP PRN PRN 04/23/18 Objective - Vital Signs/Intake & Output Reviewed Vital Signs: Yes Vital Signs: Vital Signs x48h Temp Pulse Resp BP Pulse Ox 04/25/18 15:45 36.4 C L 49 L 16 136/70 H 100 Intake & Output: Intake & Output 04/22/18 04/23/18 04/24/18 04/25/18 23:59 23:59 23:59 23:59 Intake Total 200 3930 3501.667 1855.553 Output Total 200 1385 3800 2400 Balance 0 2545 -298.333 -544.447 - Objective General Appearance: positive: No acute distress, Alert. negative: Lethargic Eyes Bilateral: positive: Normal inspection, PERRL, No lid inflammation, Conjunctivae nml ENT: positive: ENT inspection nml, Pharynx nml, No signs of dehydration. negative: Purulent nasal drainage, Pharyngeal erythema, Oral lesions Neck: positive: Nml inspection, Thyroid nml, No JVD, Trachea midline. negative: Thyromegaly, Lymphadenopathy (R), Lymphadenopathy (L), Stiff neck, Swelling/ bruising, Tracheal deviation Respiratory: positive: Chest non-tender, No respiratory distress, Breath sounds nml. negative: Wheezes, Rales, Rhonchi Cardiovascular: positive: Regular rate & rhythm, No murmur, No gallop. negative: Irregularly irregular, Extrasystoles, Tachycardia, Bradycardia, JVD present, Systolic murmur, Diastolic murmur Peripheral Pulses: 2+ Radial (R), 2+ Radial (L), 2+ Dorsalis pedis (R), 2+ Dorsalis pedis (L) Abdomen: positive: Non-tender, No organomegaly, Nml bowel sounds, No distention. negative: Tenderness, Guarding, Rebound Back: positive: Nml inspection. negative: CVA tenderness (R), CVA tenderness (L) Skin: positive: Color nml, No rash, Warm, Dry. negative: Cyanosis, Diaphoresis, Pallor Extremities: positive: Non-tender, Nml appearance. negative: Calf tenderness, Joint swelling, Evelio's sign/cords Neurologic/Psychiatric: positive: Sensation nml. negative: Weakness, Sensory loss, Facial droop, Slurred/abnml speech, Depressed mood/affect - Lab Results Fish Bones: 04/25/18 05:18 04/25/18 05:18 Other Labs: Lab Results x24hrs 04/25/18 04/25/18 Range/Units 05:18 05:18 WBC 7.2 (4.8-10.8) x10^3/uL RBC 3.62 L (4.70-6.10) 10^6/uL Hgb 11.8 L (14.0-18.0) g/dL Hct 33.9 L (42.0-52.0) % MCV 93.6 (80.0-94.0) fL MCH 32.7 H (27.0-31.0) pg MCHC 34.9 (32.0-36.0) g/dL RDW 12.6 (12.0-15.0) % Plt Count 173 (130-450) 10^3/uL MPV 8.4 (7.4-11.4) fL Sodium 135 (135-145) mmol/L Potassium 3.6 (3.5-5.0) mmol/L Chloride 104 (101-111) mmol/L Carbon Dioxide 25 (21-32) mmol/L Anion Gap 6.0 (6-13) BUN 14 (6-20) mg/dL Creatinine 0.9 (0.6-1.2) mg/dL Estimated GFR (MDRD) 81 L (>89) Glucose 87 (70-100) mg/dL Calcium 8.2 L (8.5-10.3) mg/dL ABX Reporting Has patient been on IV antibiotics over the past 48 hours?: Yes Sepsis Event Note (H) - Evaluation Current Stage of Sepsis: Sepsis Possible source of Sepsis: positive: Genitourinary - Sepsis Criteria Sepsis Criteria: Recorded Temperature greater than 38.3C or Less than 36C, Recorded Heart Rate greater than 90 bpm, QUANTITATIVE STRATEGY ANALYST: altered consciousness (unrelated to primary neuro pathology) Assessment/Plan - Problem List (1) UTI (urinary tract infection) Impression: UA culture reveals bacterial proteus mirabilis, and sensitivity study continue antibiotics (2) Sepsis pt present an increased confusion, weakness, hypotension, hypothermia. The source at this point appears from his urinary tract. now pt is hemodynamic stable, will continue antibiotics course vital monitor (3) ERIBERTO (acute kidney injury) resolved, continue gently IVF of hydration (4) Weakness generalized pt still present some weakness today, will continue PT/OT evaluation and treatment (5) Alzheimer's dementia stable, as his baseline, continue to support (6) Chronic indwelling Sneed catheter discuss with pt's . his express the difficult without sneed, she prefer to continue to have Sneed for pt. educate UTI prevention to her . Qualifiers: Urinary tract infection type: catheter-associated UTI Indwelling urinary catheter type: indwelling urethral catheter Encounter type: initial encounter Qualified Code(s): T83.511A - Infection and inflammatory reaction due to indwelling urethral catheter, initial encounter; N39.0 - Urinary tract infection, site not specified
--- NOTE | 2018-04-25 16:19 | CONSULTATION NOTE ---
Palliative Care Consultation - Referral Referring Provider: ANTONIO Gonzales hospitalist. Dr Micha Murphy ([place]) PCP Time of Visit: 04/25/18. 14:50 - 15:35 Referral setting: Hospitalized patient Referral Reason: Goals of care - Information Sources Records reviewed: Previous records reviewed History/Review of Systems obtained from: Patient, Family, Other (Hospitalist) Exam limitations: Clinical condition (Advanced dementia) - History of Present Illness Brief History of Present Illness: 83-year-old male with advanced Alzheimer's dementia and chronic Kwon catheter, brought to ED 04/22/18 for acute altered mental status and seizure activity, admitted to hospital with UTI, started on IV Cefepime, now on Zosyn. Medical history: Alzheimer's dementia, prostate cancer in remission, HTN, HLD, CAD, GERD, OA, h/o coronary stent, h/o colonoscopy, h/o knee replacement, h/o tonsil/adenoidectomy, h/o frequent falls. -Patient was brought in to ED on 04/22/18 due to a sudden change in mental status and possibly an apneic episode and seizure: sudden, convulsive jerking of UEs while at home, with low blood pressure. He was brought in by EMS and has been slowly moving back toward his baseline since admission. -Patient has been on long-term Kwon catheter due to incontinence, dribbling throughout the house. -He had prior urine infections of Morganella x2 and Klebsiella x1. -The current culture is growing out Proteus mirabilis. -Kwon catheter normally required monthly changes, but this had recently increased to weekly changes due to increased mucous/sediment formation. -Patient normally takes 1-2 walks daily when living at home. During this h ospitalization he has been able to ambulate with PT around the [place]. -Patient resides with his in [place], who is is main caregiver. -He is well taken care of by family and caregivers. Their daughter and son-in-law live across the street and are closely involved in caring for him, and they have paid caregiver support three half-days per week. -Patient also has Home Health RN for maintenance of Kwon catheter and bath aid for hygiene. -Home Health school social worker visits them monthly. - is present at my evaluation today and reports that patient appears to be improving functionally, though confusion continues. -She does report the patient has weight loss despite eating well and having a good appetite; he is enthusiastic when meals arrive. -Current weight is 73kg / 160.6 lbs. He weighed 180 lbs a year ago. -Patient has no complaints of pain. -He is pleasant and friendly with me, unable to follow directions well, responds at times incorrectly to questions or comments Medical/Surgical History - Past Medical History Cardiovascular: reports: Hypertension, High cholesterol, Coronary artery disease, Other Respiratory: reports: None Neuro: Alzhiemer's, Other (seizure disorder) GI: reports: GERD : reports: Incontinence, Indwelling catheter, Nocturia, Frequency Psych: reports: None Musculoskeletal: reports: Osteoarthritis, Other Derm: reports: None MRSA Hx?: No Other Past Medical History: spinal stenosis - Past Surgical History General: reports: Colonoscopy Ortho: reports: Knee replacement Cardiovascular: reports: Coronary stent HEENT: reports: Cataracts, Tonsil/Adenoidectomy - Substance History Use: Uses substance without health or social issues: NONE Abuse: Recurrent use of substance despite neg consequences: NONE Tobacco Details: Cigarettes (Smoker in high school, quit ~5 years after graduating college) Social History - Living Situation Living arrangement: At home Living Situation: With spouse/s.o. Support System: Patient and his , Britney, moved to [facility] from [facility] 20 years ago. They have 3 adult daughters; one daughter, Suly and her Ed live across the street and are closely involved in caring for the patient. Their daughter Suly ([phone] mobile) and her Ed ([phone] mobile) live right across the street from them and are very involved in his care. They also have private caregivers: Croeen (through [employer]) Tue and Fridays for 4 hrs. Another caregiver (through [employer]) Sun for 5 hours. Family History - Family History Family History Comment/Other: His parents 39 days apart, both aged 79. His father of heart disease and his mother had Parkinson's. They both smoked. Medications/Allergies - Medications Active Medication List: Active Medications Acetaminophen (Tylenol) 650 mg PO Q4HR PRN PRN Reason: Pain 1 to 4 Last Admin: 04/25/18 11:55 Dose: 650 mg Docusate Sodium (Colace 250mg Capsule) 250 - 500 mg PO DAILY [facility] Last Admin: 04/25/18 09:00 Dose: 500 mg Famotidine (Pepcid) 20 mg PO BID [facility] Last Admin: 04/25/18 09:01 Dose: 20 mg Piperacillin Sod/Tazobactam (Sod 3.375 gm/ Sodium Chloride) 100 mls @ 25 mls/hr IV Q8H [facility] Last Admin: 04/25/18 16:05 Dose: 25 mls/hr Sodium Chloride (Normal Saline 0.9%) 1,000 mls @ 83.333 mls/hr IV .Q12H [facility] Last Admin: 04/25/18 15:38 Dose: Not Given Ibuprofen (Motrin) 400 mg PO Q4HR PRN PRN Reason: Pain 5 to 7 Last Admin: 04/25/18 14:20 Dose: 400 mg Nystatin (Mycostatin Cream) 1 applic TOP BID [facility] Stop: 05/13/18 09:01 Last Admin: 04/25/18 09:02 Dose: 1 applic Ondansetron HCl (Zofran Inj) 4 mg IVP Q6HR PRN PRN Reason: Nausea / Vomiting Polyethylene Glycol (Miralax) 17 gm PO DAILY [facility] Last Admin: 04/25/18 09:01 Dose: 17 gm Saccharomyces Boulardii (Florastor) 500 mg PO BIDWM [facility] Last Admin: 04/25/18 16:04 Dose: 500 mg Senna (Senokot) 8.6 - 17.2 mg PO DAILY [facility] Last Admin: 04/25/18 09:01 Dose: 17.2 mg Sodium Chloride (Normal Saline Flush 0.9%) 10 ml IVP PRN PRN PRN Reason: NEEDED PER PROVIDER ORDERS Last Admin: 04/23/18 09:39 Dose: 10 ml Sodium Chloride (Normal Saline Flush 0.9%) 10 ml IVP 0100,0900,1700 [facility] Last Admin: 04/25/18 16:06 Dose: Not Given Temazepam (Restoril) 7.5 mg PO QPM PRN PRN Reason: Insomnia Wheat Dextrin (Benefiber) 1 packet PO DAILY PRN PRN Reason: Constipation Last Admin: 04/25/18 14:20 Dose: 1 packet Cranberry 2 cap PO DAILY 04/23/18 L. Acidophilus/L. Rhamnosus [Probiotic 15 Billion Cell Cap] 1 each PO DAILY 04/23/18 Losartan Potassium 50 mg PO DAILY 04/23/18 Multivitamin [Multivitamins] 2 each PO DAILY 04/23/18 Nystatin 1 applic TOP PRN PRN 04/23/18 - Allergies Allergies/Adverse Reactions: Allergies Allergy/AdvReac Type Severity Reaction Status Date / Time No Known Drug Allergies Allergy Verified 04/22/18 16:02 Review of Systems - Constitutional Constitutional: reports: Fatigue, Weakness (requires stand by assist with steve sfers), Weight loss (73 KG (160.6 lbs). BMI 26.0 Height 5ft 6in. reports he weighed 180 lbs last year.), Other. denies: Fever, Chills, Poor appetite - Eyes Eyes: reports: Corrective lenses (cataracts) - Ears, Nose & Throat Ears, Nose & Throat: reports: Hearing loss. denies: Dry mouth - Cardiovascular Cardiovascular: reports: Decr. exercise tolerance (He walked 1-2x per day at home, is starting to walk again in the hospital). denies: Exertional dyspnea - Respiratory Respiratory: denies: Cough, Sputum production, Wheezing, SOB at rest - Gastrointestinal Gastrointestinal: reports: Diarrhea (tedency to have runny stools) - Genitourinary Genitourinary: reports: Incontinence (On Kwon for urinary incontinence; also has occasaionl incontinence of bowels (2-3 times)) - Neurological Neurological: reports: Memory problems, Abnormal gait (feet splayed outward for balance), Seizures (history of acute seizure-like episode prior to ED visit), Other ( reports history of frequent falls) - Other Findings Other Findings: Limited ROS Physical Exam - Vital Signs Vital Signs: Vital Signs x48h Temp Pulse Resp BP Pulse Ox 04/25/18 15:45 97.5 F L 49 L 16 136/70 H 100 - Physical Exam General Appearance: positive: No acute distress, Alert Eyes Bilateral: positive: No lid inflammation, Conjunctivae nml ENT: positive: No signs of dehydration ( reports he drinks a good amount of liquids) Neck: positive: Trachea midline Cardiovascular: positive: Regular rate & rhythm, No gallop. negative: No murmur Respiratory: positive: Chest non-tender, No respiratory distress, Diminished throughout. negative: Rales, Rhonchi Abdomen: positive: Non-tender, Soft, Nml bowel sounds Skin: positive: No symptoms Extremities: positive: No pedal edema, Other (intermittent pneumatic compression devices on bilat LEs) Neurologic/Psychiatric: positive: Mood/affect nml, Disoriented to place, Disoriented to time, Other (Difficulty following directions; pleasant but confused, non-sequitar responses) Palliative Care - POLST Patient has POLST: Yes POLST Status: DNR, Comfort Measures Pain: No pain Tiredness/Fatigue: Mild (1-3) Drowsiness/Sedation: None Nausea: None Depression: None Anxiety: None Dyspnea: None Anorexia: None Constipation: Comment ( Prune juice seems to be enough to get him regular again. He tends toward runny stools, per .) Performance Status: Requires helps with all ADLs Ambulatory, at home walked 1-2x daily. May be getting back to baseline H/o frequent falls Now requires stand-by assist wince ED visit Incontinent of bladder, on chronic Kwon catheter. Weight loss though he eats and drinks well. Currently 160.b lbs; last year 180 lb per report of . FAST: 6E - Palliative Care Discussion: -Hospitalist requested palliative care consultation for goal clarification. -In November 2016 Britney had two back surgeries 2 days apart, and the patient stayed at [facility] for 2 weeks. It went well. -In June 2017 she had another surgery, he again stayed at [facility], but Britney reports they didn't maintain his Kwon catheter well and the environment was unhygienic so they took him out of the facility and lodged a complaint with the Health Dept. -Because of this experience, their goal is to keep him at home, and keep him out of any facility, as Britney confirmed during our discussions. ED notes indicate they want him at home as long as possible, but are amenable to placement if necessary. - has the support of her daughter and son-in-law, as well as caregiver support 3 half-days per week, this helps her maintain balance in her life, she can leave the house, run errands, take a break. So far it is working out well and their goal is that he remain in his home through end of life. -They want to avoid future hospitalizations. Britney signed a new POLST on 04/24/18: DNR and comfort care. Results - Lab Results Lab results reviewed: Yes Fish Bones: 04/25/18 05:18 04/25/18 05:18 Lab and Imaging Results: Lab Results x24hrs 04/25/18 04/25/18 Range/Units 05:18 05:18 WBC 7.2 (4.8-10.8) x10^3/uL RBC 3.62 L (4.70-6.10) 10^6/uL Hgb 11.8 L (14.0-18.0) g/dL Hct 33.9 L (42.0-52.0) % MCV 93.6 (80.0-94.0) fL MCH 32.7 H (27.0-31.0) pg MCHC 34.9 (32.0-36.0) g/dL RDW 12.6 (12.0-15.0) % Plt Count 173 (130-450) 10^3/uL MPV 8.4 (7.4-11.4) fL Sodium 135 (135-145) mmol/L Potassium 3.6 (3.5-5.0) mmol/L Chloride 104 (101-111) mmol/L Carbon Dioxide 25 (21-32) mmol/L Anion Gap 6.0 (6-13) BUN 14 (6-20) mg/dL Creatinine 0.9 (0.6-1.2) mg/dL Estimated GFR (MDRD) 81 L (>89) Glucose 87 (70-100) mg/dL Calcium 8.2 L (8.5-10.3) mg/dL Impression and Recommendations - Palliative Care Impression: 83-year-old male with advanced Alzheimer's dementia and chronic Kwon catheter, brought to ED 04/22/18 for acute altered mental status and seizure activity, admitted to hospital with UTI, started on IV Cefepime, now on Zosyn. He is showing improvement and the plan is to DC him home likely tomorrow on oral antibiotics. He receives good care at home between his , daughter across the street, and paid caregiver support three half-days per week. Family's goal is to keep him at home, and they would like to continue Palliative Care monitoring and oversight after he discharges from hospital. Recommendations/Counseling Done: UTI: Culture is growing out P mirabilis. Currently on Zosyn, hospitalist plans discharge later today or tomorrow, on oral antibiotics. Continue protiobics BID. Indwelling Kwon catheter: On chronic Kwon, 25cc of clear yellow urine, no sediment. Continue Home Health RN maintenance of catheter post-hospitalization. General weakness: Improving, able to ambulate in hallways. PT to evaluate for HH PT. Alzheimer's dementia: Cognition continues to be sub-baseline. Continue fall precautions, and Palliative Care to follow up post-hospitalization. Advanced care planning: Family updated POLST during hospitalization to DNR and comfort care. Their hope is to avoid future hospitalizations and have the patient remain at home. They are well set up to provide appropriate level of care, with close family support, paid caregiving three half-days per week and Home Health RN for catheter maintance and HH Aide for hygiene. Family requests palliative care to continue to monitor the patient after he discharges from hospital. Palliative care will follow up with family. Time Spent: 45 minutes were spent with more than 50% of the time spent on counseling, educa tion, anticipatory guidance, and coordination of care.
[2018-04-26] MEDS: PIPERACILLIN/TAZOBACTAM 3.375 GM in SODIUM CHLORIDE 0.9% MINIBAG 100 ML IV SCH ×2 (00:26→08:52)
[2018-04-26 06:08] LABS: BASOPHILS # (AUTO) 0.1 10^3/uL (0.0-0.1); BASOPHILS % (AUTO) 1.3 %; EOSINOPHILS # (AUTO) 0.5 10^3/uL (0.0-0.7); EOSINOPHILS % (AUTO) 7.2 %; HGB - HEMOGLOBIN 11.6 g/dL (14.0-18.0); LYMPHOCYTES # (AUTO) 2.1 10^3/uL (1.5-3.5); LYMPHOCYTES % (AUTO) 29.7 %; MEAN CORPUSCULAR HGB CONC 34.5 g/dL (32.0-36.0); MEAN CORPUSCULAR VOLUME 95.5 fL (80.0-94.0); MEAN PLATELET VOLUME 8.9 fL (7.4-11.4); MONOCYTES # (AUTO) 0.6 10^3/uL (0.0-1.0); MONOCYTES % (AUTO) 8.1 %; NEUTROPHILS # (AUTO) 3.8 10^3/uL (1.5-6.6); NEUTROPHILS % (AUTO) 53.7 %; PLT - PLATELET COUNT 169 10^3/uL (130-450); RED BLOOD COUNT 3.51 10^6/uL (4.70-6.10); RED CELL DISTRIBUTION WIDTH 12.8 % (12.0-15.0)
[2018-04-26 06:17] LABS: ALBUMIN/GLOBULIN RATIO 1.3 (1.0-2.2); BILIRUBIN,TOTAL 0.8 mg/dL (0.2-1.0); CALCIUM 8.1 mg/dL (8.5-10.3); CREATININE 0.8 mg/dL (0.6-1.2); TOTAL PROTEIN 5.4 g/dL (6.7-8.2)
[2018-04-26 08:16] VITALS: BP 115/72
[2018-04-26] MEDS: SENNA 8.6 MG TABLET PO SCH (08:55)
[2018-04-26] MEDS: DOCUSATE SODIUM 250 MG CAPSULE PO SCH (08:55)
[2018-04-26] MEDS: FAMOTIDINE 20 MG TABLET PO SCH (08:55)
[2018-04-26] MEDS: SACCHAROMYCES BOULARDII 250 MG CAPSULE PO SCH (08:55)
[2018-04-26] MEDS: POLYETHYLENE GLYCOL 3350 17 GM PACKET PO SCH (08:56)
[2018-04-26] MEDS: NYSTATIN CREAM 15 GM TUBE TOP SCH (08:59)
--- NOTE | 2018-04-26 11:41 | Discharge Plan ---
Discharge Plan Disposition: Home, Self Care Condition: Poor Prescriptions: Sulfamethox/Trimeth 800/160 [Bactrim Ds 800/160] 1 each PO BID #14 tablet Diet: Regular Activity Restrictions: Activity as Tolerated Shower Restrictions: No (fall precaution) Instruction Topics: UTI, Catheter Indwelling Urinary Dc, Sulfamethoxazole Trimethoprim SMX-TMP tablets Additional Instructions or Follow Up instructions: You may follow up your PCP in one week, follow up urologist as out-pt. You were found to have urinary track infection in the hospital. You are treated with antibiotics. Bactrim is prescribed for you to continue the antibiotics course. Please continue the home health care as your schedule. Should your symptoms return or worsen, you may present ER or call 911 for help. No Smoking: If you smoke, Please STOP! Call for help. Follow-up with: Micha Murphy MD [Physician No Access] -
--- NOTE | 2018-04-26 11:51 | DISCHARGE SUMMARY ---
Discharge Summary Discharge Date: 04/26/18 Discharging Provider: SHAVER Primary Care Provider: Micha Saenz Condition at Discharge: Poor Discharge Disposition: 01 Home, Self Care Discharge Facility Name: home - DIAGNOSES Admission Diagnoses: (1) Hypotension (2) Seizure (3) UTI (urinary tract infection) Discharge Diagnoses with Status of Each Condition: (1) UTI (urinary tract infection) UA reveals positive proteus mirabilis, sensitive to Bactrim. pt is prescribed bactrim for d/c home to finish the course. Pt is chronic indwelling sneed catheter, educate and discuss with pt for prevention of UTI continue PCP and urologist as out-pt care (2) Weakness generalized improved, continue previous home PT/OT setting. (3) Alzheimer's dementia continue follow up PCP management (4) Chronic indwelling Sneed catheter educate and discuss with pt for prevention of UTI continue PCP and urologist as out-pt care - HPI History of Present Illness: refer from Dr. Ray for pt on 04/22/18 as the following Patient is an 83-year-old male who is pleasantly confused and has a known past medical history of advanced dementia, prostate cancer in remission, persistent indwelling Sneed catheter due to incontinence, who presents to the emergency room after the family witnessed a sudden change in his mental status and what they describe as a possible apneic episode and a possible seizure with convulsive jerking movements of the upper extremities with a sudden onset while at home.Patient was in his usual state of health in his chair when he suddenly began to slouch over, looks like he stopped breathing for several seconds, became pale, and had convulsive movements of the upper extremities. Family took his blood pressure and noted that it was low. EMS was called and the patient slowly began to improve and is now closer to his baseline mental status with advanced dementia. In the emergency room, the workup was done for stroke versus TIA and a head CT was unremarkable, chest x-ray was unremarkable, EKG showed nonspecific changes, CBC did not show any significant WBC count, and a lactic acid level was normal. Urine however did suggest possible UTI versus contamination given the chronic indwelling Sneed catheter. He also became transiently hypotensive with blood pressures in the 90s over 60s and has responded to a single dose of IV ceftriaxone and IV fluids in the emergency room. Patient is escorted by his and his daughter both of whom appear to be very reliable historians and appeared to be very well trained in the care of his Sneed and they also have assistance with a home health aide and home health nurses. They have not noticed any fevers, chills, hematuria, foul-smelling odor, or other symptoms lately. Patient has not been complaining of any specific pain or having other changes suggestive of an ongoing infection and generally speaking has been in his usual state of health until earlier today. Because of the possible UTI given his chronic comorbidities along with hypotension, it was thought best to admit the patient for observation, start him on some IV fluids and IV antibiotics and pending clinical course possible discharge when he is back to baseline and sent home with oral antibiotics. - HOSPITAL COURSE Hospital Course: Pt was admitted for UTI and weakness plus AMS. After treat with antibiotics, and hydration, pt's mental status is as his baseline. UA reveals positive Proteus M irabilis, and sensitivity to Bactrim. Educate and discuss with pt's family about sneed care for pt to prevent UTI, and advise follow up PCP and urologist as out-pt. - ALLERGIES Allergies/Adverse Reactions: Allergies Allergy/AdvReac Type Severity Reaction Status Date / Time No Known Drug Allergies Allergy Verified 04/22/18 16:02 - MEDICATIONS Home Medications: Ambulatory Orders Medication Instructions Recorded Confirmed Cranberry 2 cap PO DAILY 04/23/18 04/23/18 L. Acidophilus/L. Rhamnosus 1 each PO DAILY 04/23/18 04/23/18 [Probiotic 15 Billion Cell Cap] Losartan Potassium 50 mg PO DAILY 04/23/18 04/23/18 Multivitamin [Multivitamins] 2 each PO DAILY 04/23/18 04/23/18 Nystatin 1 applic TOP PRN PRN 04/23/18 04/23/18 Sulfamethox/Trimeth 800/160 1 each PO BID #14 tablet 04/26/18 [Bactrim Ds 800/160] - PHYSICAL EXAM AT DISCHARGE General Appearance: positive: No acute distress, Alert. negative: Lethargic Eyes Bilateral: positive: Normal inspection, PERRL, No lid inflammation, Conjunctivae nml ENT: positive: ENT inspection nml, Pharynx nml, No signs of dehydration. negative: Purulent nasal drainage, Pharyngeal erythema, Oral lesions Neck: positive: Nml inspection, Thyroid nml, No JVD, Trachea midline. negative: Thyromegaly, Lymphadenopathy (R), Lymphadenopathy (L), Stiff neck, Swelling/bruising, Tracheal deviation Respiratory: positive: Chest non-tender, No respiratory distress, Breath sounds nml. negative: Wheezes, Rales, Rhonchi Cardiovascular: positive: Regular rate & rhythm, No murmur, No gallop. negative: Irregularly irregular, Extrasystoles, Tachycardia, Bradycardia, JVD present, Systolic murmur, Diastolic murmur Peripheral Pulses: positive: 2+ Abdomen: positive: Non-tender, No organomegaly, Nml bowel sounds, No distention. negative: Tenderness, Guarding, Rebound Back: positive: Nml inspection. negative: CVA tenderness (R), CVA tenderness (L) Skin: positive: Color nml, No rash, Warm, Dry. negative: Cyanosis, Diaphoresis, Pallor Neurologic/Psychiatric: positive: Motor nml, Sensation nml. negative: Disoriented to person, Weakness, Sensory loss, Facial droop, Slurred/abnml speech, Depressed mood/affect - LABS Result Diagrams: 04/26/18 05:28 04/26/18 05:28 - SEPSIS Current Stage of Sepsis: Sepsis Possible source of Sepsis: Genitourinary Sepsis Criteria: Recorded Temperature greater than 38.3C or Less than 36C, Recorded Heart Rate greater than 90 bpm, MONOGRAM TECHNICIAN: altered consciousness (unrelated to primary neuro pathology) - FOLLOW UP Follow Up: You may follow up your PCP in one week, follow up urologist as out-pt. You were found to have urinary track infection in the hospital. You are treated with antibiotics. Bactrim is prescribed for you to continue the antibiotics course. Please continue the home health care as your schedule. Should your symptoms return or worsen, you may present ER or call 911 for help. - TIME SPENT Time Spent in Discharge (Minutes): 50
== END 2018-04-26 14:13 | disposition home health service (06) | DRG 698 ==
LOC: EDUNIT# → ED 15:52 → MS2 20:18 → OBSVTOIN 04-23 13:21
PROVIDERS: ADMIT Family Medicine Sports Medicine; ATTEND Nurse Practitioner Gerontology
DX: T83.511A Infection and inflammatory reaction due to indwelling urethral catheter, initial encounter (principal); A41.59 Other Gram-negative sepsis; I10 Essential (primary) hypertension; N12 Tubulo-interstitial nephritis, not specified as acute or chronic; N17.9 Acute kidney failure, unspecified; I95.9 Hypotension, unspecified; R32 Unspecified urinary incontinence; Y84.6 Urinary catheterization as the cause of abnormal reaction of the patient, or of later complication, without mention of misadventure at the time of the procedure; G30.9 Alzheimer's disease, unspecified; F02.80 Dementia in other diseases classified elsewhere, unspecified severity, without behavioral disturbance, psychotic disturbance, mood disturbance, and anxiety; Z22.39 Carrier of other specified bacterial diseases; Z96.0 Presence of urogenital implants; R56.9 Unspecified convulsions; R68.0 Hypothermia, not associated with low environmental temperature; R33.9 Retention of urine, unspecified; I25.10 Atherosclerotic heart disease of native coronary artery without angina pectoris; Z66 Do not resuscitate; Z51.5 Encounter for palliative care; Z85.46 Personal history of malignant neoplasm of prostate; Z95.5 Presence of coronary angioplasty implant and graft; Z91.81 History of falling; Z87.891 Personal history of nicotine dependence
CPT/HCPCS: 36415; 70450; 71045; 80048; 80053; 81001; 81003; 83605; 83735; 84484; 85025; 85027; 87040; 87077; 87086; 87181; 93005; 96361; 96365; 96367; 99221; 99284

== ENCOUNTER 2018-05-01 09:35 | Outpatient (CLI) | payer MEDICARE, OTHER ==
--- NOTE | 2018-05-01 16:30 | CONSULTATION NOTE ---
Palliative Care Follow Up - Referral Referring Provider: Dr Micha Murphy Time of Visit: 05/01/2018. 9:35 - 10:35 Referral setting: Home Referral Reason: Increased R knee pain - Information Sources Records reviewed: Previous records reviewed History/Review of Systems obtained from: Patient, Family Exam limitations: Clinical condition (Advanced dementia; vague historian) - History of Present Illness Update Brief HPI Update: 83-year-old male with advanced Alzheimer's dementia and chronic Kwon catheter, hospitalized 04/22/18 for UTI, treated with IV antibiotics (Cefepime, then Zosyn), discharged home last week, completing his Bactrim DS oral regimen. He is complaining of knee pain Medical history: Alzheimer's dementia, prostate cancer in remission, HTN, HLD, CAD, GERD, OA, h/o coronary stent, h/o colonoscopy, h/o knee replacement, h/o tonsil/adenoidectomy, h/o frequent falls. -Patient was discharge from hospital last week with Proteus mirabilis UTI, is still completing his oral antibiotics (Bactrim DS) -Family reported worsening knee pain last week, which kept the patient up on night. I recommended increasing Tylenol to 1000 mg TID, with the evening dosing being Tylenol PM (with diphenhydramine). -Patient continues to complain of right knee pain but is vague historian and unable to elaborate. -He had a complete R knee replacement several years ago, and a partial L knee replacement. -I had also recommended salon pas patches. -Family reports knee pain has improved, he has not been as agitated nor been kept up at night as he was last week. -Since discharge from hospital he has been constipated -Family does give him some stool softener (docusate/senna), but is not giving MiraLAX. I recommended senna alone and Miralax 1/4 capful dosing and titrate from there. -He has a new commode which he has been trying to use without much success. Today the and daughter were working with him and had some frustrations and difficulties. -Home health aide is expected a little later this morning and they are looking forward to her help. -They have noticed decrease in function, increased confusion and decreased ability to follow directions and increased frustration as a result. -He is eating well, he has a good appetite, but he is losing weight. He was 150 pounds in the hospital. -Family reports a seizure episode prior to hospitalization and another incident yesterday when patient flung up his arms. -They report only one other similar episode, several years ago Social History - Living Situation Living arrangement: At home Living Situation: With spouse/s.o., With family Support System: - is his main caregiver, but daughter Suly and her family live right across the street, so she is closely involved in his care. - has the support of her daughter and son-in-law, as well as caregiver support 2 half-days per week, which permits her to get out of the house and do errands or just have free time on her own, which is in valuable due to the stress of constant caregiving. She just cut the caregiving down from 3 to 2 half-days due to cost concerns. -Depsite the support, it is stressful and difficulty, especially with the patient's recent decline in cognition and function, with increased difficulty understanding and following directions. Medications/Allergies - Medications Home Medications: Ambulatory Orders Medication Instructions Recorded Confirmed Cranberry 2 cap PO DAILY 04/23/18 05/01/18 L. Acidophilus/L. Rhamnosus 1 each PO DAILY 04/23/18 05/01/18 [Probiotic 15 Billion Cell Cap] Losartan Potassium 50 mg PO DAILY 04/23/18 05/01/18 Multivitamin [Multivitamins] 2 each PO DAILY 04/23/18 05/01/18 Nystatin 1 applic TOP PRN PRN 04/23/18 05/01/18 Sulfamethox/Trimeth 800/160 1 each PO BID #14 tablet 04/26/18 05/01/18 [Bactrim Ds 800/160] D-Mannose [Mannxtra] 1 ea PO DAILY MDD E coli UTI 05/01/18 05/01/18 prophylactic Triamcinolone 0.1% Oint [Kenalog 1 ea TOP DAILY 05/01/18 05/01/18 0.1% Oint] - Allergies Allergies/Adverse Reactions: Allergies Allergy/AdvReac Type Severity Reaction Status Date / Time No Known Drug Allergies Allergy Verified 04/22/18 16:02 Review of Systems - Constitutional Constitutional: reports: Weakness, Weight loss (74 kilos (162.8 lbs) in hospital last week. Family reports he weighed 180 lbs last year) - Eyes Eyes: reports: Vision loss, Corrective lenses (cataracts) - Ears, Nose & Throat Ears, Nose & Throat: reports: Hearing loss - Cardiovascular Cardiovascular: reports: Decr. exercise tolerance - Respiratory Respiratory: denies: SOB with exertion - Gastrointestinal Gastrointestinal: reports: Constipation, Good appetite - Genitourinary Genitourinary: reports: Incontinence (bowel and bladder. Family takes him to toilet about Q2hr), Other (chronic indwelling Kwon catheter) - Musculoskeletal Musculoskeletal: reports: Stiffness, Limited range of motion, Joint pain (comp lains R knee pain, also R foot pain), Assistive devices (walker), Transfer issues (requires stand by assistance) - Neurological Neurological: reports: Memory problems, Pre-existing deficit, Abnormal gait - Psychiatric Psychiatric: reports: Other (difficulty following directions) - Other Findings Other Findings: Limited ROS Physical Exam - Physical Exam General Appearance: positive: No acute distress, Alert Eyes Bilateral: positive: EOMI, No lid inflammation, Conjunctivae nml, No scleral icterus ENT: positive: No signs of dehydration Neck: positive: Trachea midline Cardiovascular: positive: Regular rate & rhythm, No murmur, No gallop Respiratory: positive: Chest non-tender, No respiratory distress, Breath sounds nml Abdomen: positive: Non-tender, Soft, Other (Nontender nodule left lower quadran approx 2cm diameter) Extremities: positive: Pedal edema (mild), Other (Right second toes disfigured, lies on top of the foot.) Neurologic/Psychiatric: positive: Mood/affect nml, Disoriented to place, Disoriented to time, Other (increased confusion, family reports worsening ability to follow directions) Palliative Care - POLST Patient has POLST: Yes POLST Status: DNR, Comfort Measures Pain: Location (R knee, R foot), Comment (Patient unable to describe pain. It appears it's mostly in the R knee, which has been totally replaced) Anxiety: Mild (1-3) Anorexia: None, Weight loss Constipation: Yes, Intermittent constipation Performance Status: Requires helps with all ADLs Ambulatory, has not walked since discharge. Used to walk 1-2x/day at home H/o frequent falls Now requires stand-by assist for transfers Incontinent of bladder, on chronic Kwon catheter. Weight loss though he eats and drinks well. Currently 162.8 lbs; last year 180 lb per report of . Revised FAST: 7a - Palliative Care Discussion: -They want to avoid future hospitalizations. Britney signed a new POLST on 04/24/18: DNR and comfort care. -Their goal continues to be to keep him at home, and keep him out of any facility, due to a bad experience at [facility] when he was there on respite. -Daughter and both acknowledge that the patient would not want to be living like he is now, if he understood what was going on. -They are both supportive of keeping him comfortable and Hospice if he qualifies. -We discussed with holding treatment and just providing comfort care and the daughter expressed her feelings of guilt and discomfort over this, while acknowledging that this is not how her dad would want to live if he had the choice. -For them, comfort and quality of life is more important than longevity. -They do not really see the point of going back to the hospital. -Also he has had 2 recent seizures of unknown etiology. -They do report he eats well and eats whatever is put in front of him, but he is losing weight. -I spoke with the home health nurse who maintains his W[place] catheter, she will start doing arm circumference measurements and or weights weekly. -HH RN will bring her flat scale to see if he can use this. He is unable to stand on his home scale. -The daughter expressed her sadness that her father is no longer able to tolerate being around her two young sons, age 10 and 12. He becomes agitated with their normal boy behavior and boy noise, and she is sad to see them losing the grandfather that was previously so loving. She worries that their memories will be only of this current grandpa who gets agitated and then yells. She intellectually understands what is happening and that it's not him, it's the dementia, but emotionally still feels the pain and regret. Impression and Recommendations - Palliative Care Impression: 83-year-old male with advanced Alzheimer's dementia and chronic Kwon catheter, hospitalized last week for proteus mirbilis UTI, now at home finishing up oral antibiotics (Bactrim DS). He is cognitively and functionally declining, with weight loss despite a good appetite (162 lbs currently vs 180 lbs last year) and and family (their daughter lives right across the street) are feeling the strain of the increased care required. Family's goal is to keep him at home, without future transfers to hospital, and they are open to Hospice if medical criteria are met. Palliative Care will provide support, with transition to Hospice when criteria are met. Recommendations/Counseling Done: UTI: P mirabilis. Discharged from hospital with oral Bactrim DS x 7 days. He is completing the regimen. Continuing probiotics BID. R Knee pain: Continue Tylenol 1000mg TID as needed. Start voltaren 1% gel, apply to affected area up to QID as needed. If pain continues, consider starting low dose gabapentin. Indwelling Kwon catheter: Catheter changes are now weekly, done by HH RN. Catheter bag is empty during my visit, family just emptied it General weakness: Still ambulatory with walker, but has not taken his normal daily outdoors walks since discharge. Family is hoping he will be able to soon. Alzheimer's dementia: Cognition and functionality declining. More difficulty following directions. HH bath aid continues to come twice weekly. Paid caregiver support now two half-days per week. It was 3 days/week but she cut it to two due to costs. Seizure disorder: Acute; of unknown etiology. He has had two recent "seizures": last week prior to the ED, and yesterday. He stiffens and throws up his arms. They report he had a similar seizure several years ago, then nothing until last week. 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 An MRI would be needed for further evaluation. Failure to thrive / weight loss: Patient was 74 kilos (162.8 lbs) in hospital last week. Last year he was 180 lbs. Family reports a good appetite, but he keeps losing weight. Follow up with Hospice about criteria. HH RN will start to take weekly arm circumference -- or weights, if patient tolerates getting on her flat scale. Advanced care planning: POLST during hospitalization to DNR and comfort care. They want to avoid future hospitalizations and avoid treatments; they "don't see the point," the patient would not want to live like this. Family feels they wo uld be ready for Hospice now if patient meets the medical the criteria. Follow up with Hospice. Family will follow up with Palliative Care for knee/foot pain if needed. Time Spent: 60 minutes were spent with more than 50% of the time spent on counseling, education, and coordination of care.
== END 2018-05-01 09:36 | disposition home or self-care (01) ==
LOC: PC 09:35
PROVIDERS: ATTEND Nurse Practitioner
DX: Z51.5 Encounter for palliative care (principal); N39.0 Urinary tract infection, site not specified; M25.561 Pain in right knee; Z96.0 Presence of urogenital implants; R53.1 Weakness; G30.9 Alzheimer's disease, unspecified; F02.80 Dementia in other diseases classified elsewhere, unspecified severity, without behavioral disturbance, psychotic disturbance, mood disturbance, and anxiety; G40.909 Epilepsy, unspecified, not intractable, without status epilepticus; R62.7 Adult failure to thrive; K59.00 Constipation, unspecified; Z66 Do not resuscitate
CPT/HCPCS: 99350

== ENCOUNTER 2018-05-17 14:15 | Outpatient (CLI) | payer MEDICARE, OTHER ==
--- NOTE | 2018-05-17 16:13 | CONSULTATION NOTE ---
Palliative Care Follow Up - Referral Referring Provider: Dr Micha Murphy Time of Visit: 05/17/2018. 14:15 - 15:00 Referral setting: Home (Seen in home setting due to taxing and considerable effort required to leave the home due to limited mobility secondary to advanced dementia.) Referral Reason: Arm pain - Information Sources Records reviewed: Previous records reviewed History/Review of Systems obtained from: Patient, Family Exam limitations: Clinical condition (Advanced dementia) - History of Present Illness Update Brief HPI Update: 83-year-old male with advanced Alzheimer's dementia and chronic Kwon catheter, hospitalized 04/22/18 for UTI/sepsis, treated with IV antibiotics (Cefepime, then Zosyn), discharged home last week, completing his Bactrim DS oral regimen. He is complaining of knee pain Medical history: Alzheimer's dementia, prostate cancer in remission, indwelling Kwon catheter, HTN, HLD, CAD, GERD, OA, h/o coronary stent, h/o colonoscopy, h/o knee replacement, h/o tonsil/adenoidectomy, h/o frequent falls. -Patient has increasing confusion and difficulty following instructions. -For example, now uses the commode because it's too confusing to navigate getting his walker in to use the toilet. -Has more confusion with dressing and in general following instructions and gets frustrated. -Patient is weaker on right side, and favors it according to his family. It is unknown whether he is ever had a TIA, apparently this does not show up on imaging. -He has chronic right knee pain, which family reports has improved with use of Voltaren gel. -He has a recent new complaint of pain in right upper extremity, but family has noted no complaints of pain today. They will see if Voltaren gel helps on the RUE pain. They note that his weight loss has accelerated over the last 4 months or so. -His weight in hospital was 162.8 lbs (74kg), BMI 26.3 (5'6" height). -No longer able to weigh him due to his fear/lack of balance when getting on the scale. -Arm circumference has been decreasing. Left arm last week was 29.21cm, this week 28.58. RUE last week was 29.21, this week 27.94. -Family reports he is eating okay although less enthusiastically than previously. -They have been giving him 1 boost daily and will try to increase it to 2-3. They are also trying to find other protein/energy shake that he likes. Provided some recommendations. -Bowel movement patterns have been 2 days on, 2 days off, intermittent with loose stools. has been repeatedly trying to adjust bowel meds according to his daily movements, I suggested starting at low dose, staying with it for 5-7 days before readjusting. For example, 1 senna daily and very low dose miralax (1/4 capful) every other day. -Family has concerns that he doesn't display typical signs of infection/UTI, want to avoid him becoming septic again, asked about using a prophylactic antibiotic. Discussed with them at length, advised against it. Recommended close monitoring, maintaining adequate levels of fluid intake for kidney function (they say he does drink water regularly). -One sign of infection has been increased leg pain, so they were concerned when he complained of a new arm pain. That pain has improved, but family will closely monitor. -Home Health RN visits every week for weekly catheter changes and maintenance. They also have bath aid twice weekly. -Home Health SW has a visit scheduled next week. Social History - Living Situation Living arrangement: At home Living Situation: With spouse/s.o., With family Support System: - is his main caregiver, but daughter Suly and her family live right across the street, so she is closely involved in his care. - has the support of her daughter and son-in-law, as well as caregiver support 2 half-days per week, which permits her to get out of the house and do errands. She recently decreased caregiver support from 3 to 2 half-days due to cost. Medications/Allergies - Medications Home Medications: Ambulatory Orders Medication Instructions Recorded Confirmed Cranberry 2 cap PO DAILY 04/23/18 05/17/18 L. Acidophilus/L. Rhamnosus 1 each PO DAILY 04/23/18 05/17/18 [Probiotic 15 Billion Cell Cap] Losartan Potassium 50 mg PO DAILY 04/23/18 05/17/18 Multivitamin [Multivitamins] 2 each PO DAILY 04/23/18 05/17/18 Nystatin 1 applic TOP PRN PRN 04/23/18 05/17/18 D-Mannose [Mannxtra] 1 ea PO BID MDD E coli UTI 05/01/18 05/17/18 prophylactic Triamcinolone 0.1% Oint [Kenalog 1 ea TOP DAILY 05/01/18 05/17/18 0.1% Oint] - Allergies Allergies/Adverse Reactions: Allergies Allergy/AdvReac Type Severity Reaction Status Date / Time No Known Drug Allergies Allergy Verified 04/22/18 16:02 Review of Systems - Constitutional Constitutional: reports: Weight loss (--His weight in hospital was 162.8 lbs (74kg), BMI 26.3 (5'6" height). -No longer able to weigh him due to his fear/lack of balance when getting on the scale. -Arm circumference has been decreasing. Left arm last week was 29.21cm, this week 28.58. RUE last week was 29.21, this week 27.94. Was 182 lbs at [facility] [place] office visit May 2017.). denies: Poor appetite - Eyes Eyes: reports: Corrective lenses (cataracts) - Ears, Nose & Throat Ears, Nose & Throat: reports: Hearing loss - Cardiovascular Cardiovascular: reports: Decr. exercise tolerance - Respiratory Respiratory: denies: Cough, SOB with exertion - Gastrointestinal Gastrointestinal: reports: Good appetite - Genitourinary Genitourinary: reports: Incontinence (bowel and bladder, now uses commode instead of toilet due to incomprehension), Other (Kwon catheter managed/changed weekly by RN) - Musculoskeletal Musculoskeletal: reports: Stiffness, Limited range of motion, Joint pain (chr onic complaint of R knee pain, though less recently. Recent c/o R arm pain. R side is weaker and he favors it), Assistive devices (walker), Transfer issues (stand by assistance) - Neurological Neurological: reports: Memory problems, Pre-existing deficit, Abnormal gait - Psychiatric Psychiatric: reports: Other (increased confusion, difficulty following directions) - Other Findings Other Findings: Limited ROS Physical Exam - Vital Signs Temperature: 96.7 F Pulse Rate: 60 O2 Saturation: 99 (room air) Blood Pressure: 99/45 - Physical Exam General Appearance: positive: No acute distress, Alert Eyes Bilateral: positive: No lid inflammation, Conjunctivae nml, No scleral icte kelly ENT: positive: No signs of dehydration Neck: positive: No JVD Cardiovascular: positive: Regular rate & rhythm, No murmur, No gallop Respiratory: positive: Chest non-tender, No respiratory distress, Breath sounds nml Skin: positive: No symptoms, Wound (lesion where catheter tubing rubs leg. HH RN restarted wound care on it) Extremities: positive: No pedal edema Neurologic/Psychiatric: positive: Disoriented to person, Disoriented to place, Disoriented to time, Flat affect Palliative Care - POLST Patient has POLST: Yes POLST Status: DNR, Comfort Measures Pain: Location (Usually complains of pain on R side: often R knee, recently R arm, though complaints improved today.) Anxiety: Comment (gets frustrated due to lack of comprehension) Anorexia: None Constipation: Managed, Intermittent constipation Performance Status: Increased confusion, difficulty following instructions, lack of comprehension. Uses commode instead of toilet. Weight loss but still eating, with decent appetite but less enthusiastic than previously. Most recent weight was 150lbs in hospital, 24.2 BMI at that time Ambulatory with walker, slow with poor balance, R foot splays out when he walks. - Palliative Care Discussion: Family has had questions and about palliative care vs hospice, and had voiced these to RN during her visits. One daughter was concerned about not treating pneumonia, and voicing concern that not treating is immoral. RN during a home health visit provided education and helped clarify what comfort care was. We discussed this further today and they expressed a better understanding of comfort care and that goal of treatment is alleviating suffering, not curative. The spouse/POA and daughter Suly feel that hospice, when he meets criteria, would be appropriate and something they would agree to. They believe the other daughter(s) who have voiced concerns would be too. At this time they don't feel a conversation with palliative care and the other daughters is needed. Patient's spouse is the main caregiver. She has help and support from family, especially Suly who lives across the street. She has an outside caregiver support two half-days per week, and finances are an issue so she had recently cut down those hours. The spouse remains at high risk for caregiver burnout. Patient continues decline in function and cognition, decreased cognition and trouble following directions. His POLST is DNR and comfort care and their goal is to keep him at home, and out of any facility. Impression and Recommendations - Palliative Care Impression: 83-year-old male with advanced Alzheimer's dementia and chronic Kwon catheter, in hospital last month for UTI/sepsi. now home with HH RN for maintenance of indwelling Kwon catheter and [facility] for hygiene. He continues to slowly decline cognitively and functionally. He is eating but losing weight, arm circumference is decreasing. Recommendations/Counseling Done: R Knee pain: Improved with use of Voltaren gel as needed. Continue Tylenol 1000mg TID as needed. If pain flares can consider low dose gabapentin. h/o UTI proteus mirabilis: No complains of dysuria, frequency, urgency or back pain. New complaint of arm pain, but asymptomatic today. Family concerned because increased complaints of pain in the past have indicated UTI. They wondered about starting prophylactic antibiotics; discussed and recommended against due to side effects and increasing abx resistance in long-term. Indwelling Kwon catheter: Weekly catheter changes managed by [facility] RN. Alzheimer's dementia: Continued steady decline, increased confusion and difficulty following directions. Seizure disorder: No seizure activity since the two seizures he had just prior to ED/hospitalization. He has had two recent "seizures": last week prior to the ED, and yesterday. CT revealed a condition that can be found in etiologies such as hypoxia, hypoglycemia, or status epilepticus. An MRI would be needed for further evaluation. Failure to thrive / weight loss: Patient was 74 kilos (162.8 lbs, BMI 26.2) in hospital in April; in May 2017 he weighed 180 lbs. He continues to have a decent appetite, but is losing weight. Can't weigh him on home scale due to anxiety of getting on the scale. Left arm last week was 29.21cm, this week 28.58. RUE last week was 29.21, this week 27.94. Advanced care planning: POLST is DNR and comfort care. Goal is to avoid future hospitalizations and avoid treatments. Family had second thoughts about Hospice, received education from HH RN and Palliative Care PSYCHOLOGY ASSISTANT, now feel they have more understanding of comfort care purpose and goals and also criteria for hospice. Spouse and daughter Suly feel hospice will be appropriate when patient meets medical criteria. They don't think the other daughter(s) will object. Palliative care provider offered to speak with other family members; they don't think it is currently necessary. Time Spent: 45 minutes were spent with more than 50% of time spent on counseling, education, and coordination of care.
== END 2018-05-17 14:16 | disposition home or self-care (01) ==
LOC: PC 14:15
PROVIDERS: ATTEND Nurse Practitioner
DX: Z51.5 Encounter for palliative care (principal); G30.9 Alzheimer's disease, unspecified; F02.80 Dementia in other diseases classified elsewhere, unspecified severity, without behavioral disturbance, psychotic disturbance, mood disturbance, and anxiety; R15.9 Full incontinence of feces; R32 Unspecified urinary incontinence; M25.60 Stiffness of unspecified joint, not elsewhere classified; H91.90 Unspecified hearing loss, unspecified ear; R41.0 Disorientation, unspecified; R41.81 Age-related cognitive decline; I10 Essential (primary) hypertension; I25.10 Atherosclerotic heart disease of native coronary artery without angina pectoris; K21.9 Gastro-esophageal reflux disease without esophagitis; H26.9 Unspecified cataract; M19.90 Unspecified osteoarthritis, unspecified site; R29.6 Repeated falls; Z66 Do not resuscitate; Z95.5 Presence of coronary angioplasty implant and graft
CPT/HCPCS: 99349

== ENCOUNTER 2018-05-23 08:00 | Outpatient (CLI) | payer MEDICARE, OTHER ==
[2018-05-23 17:16] LABS: BASOPHILS # (AUTO) 0.1 10^3/uL (0.0-0.1); BASOPHILS % (AUTO) 0.6 %; EOSINOPHILS # (AUTO) 0.1 10^3/uL (0.0-0.7); EOSINOPHILS % (AUTO) 0.6 %; HGB - HEMOGLOBIN 13.6 g/dL (14.0-18.0); LYMPHOCYTES % (AUTO) 10.1 %; MEAN CORPUSCULAR HEMOGLOBIN 32.5 pg (27.0-31.0); MEAN CORPUSCULAR VOLUME 95.8 fL (80.0-94.0); MEAN PLATELET VOLUME 8.4 fL (7.4-11.4); MONOCYTES # (AUTO) 0.4 10^3/uL (0.0-1.0); MONOCYTES % (AUTO) 4.2 %; NEUTROPHILS # (AUTO) 8.2 10^3/uL (1.5-6.6); NEUTROPHILS % (AUTO) 84.5 %; PLT - PLATELET COUNT 192 10^3/uL (130-450); RED BLOOD COUNT 4.17 10^6/uL (4.70-6.10); RED CELL DISTRIBUTION WIDTH 12.6 % (12.0-15.0); WHITE BLOOD COUNT 9.7 x10^3/uL (4.8-10.8)
[2018-05-23 17:29] LABS: CALCIUM 8.9 mg/dL (8.5-10.3); CREATININE 0.8 mg/dL (0.6-1.2)
[2018-05-24 10:51] LABS: BILIRUBIN,URINE NEGATIVE (NEGATIVE); CLARITY,URINE CLEAR (CLEAR); GLUCOSE, URINE (UA) NEGATIVE (NEGATIVE); KETONES,URINE (UA) NEGATIVE (NEGATIVE); LEUKOCYTE ESTERASE, URINE NEGATIVE (NEGATIVE); NITRITE,URINE NEGATIVE (NEGATIVE); OCCULT BLOOD,URINE NEGATIVE (NEGATIVE); PH,URINE 7.5 PH (5.0-7.5); PROTEIN,URINE NEGATIVE (NEGATIVE); UROBILINOGEN,URINE 0.2 (NORMAL) E.U./dL (NORMAL)
== END 2018-05-23 23:59 | disposition home or self-care (01) ==
LOC: LAB.R 08:00
PROVIDERS: ATTEND Family Medicine
DX: T83.511A Infection and inflammatory reaction due to indwelling urethral catheter, initial encounter (principal); C61 Malignant neoplasm of prostate
CPT/HCPCS: 80048; 81001; 81003; 84153; 85025; 87086

== ENCOUNTER 2018-05-28 15:09 | Outpatient (CLI) | payer MEDICARE, OTHER | END 2018-05-28 15:10 | disposition EMS.NT | LOC: EMS 15:09 | PROVIDERS: ATTEND Surgery | DX: R19.7 Diarrhea, unspecified (principal) ==